=== PATIENT | female | born 1940 | race Caucasian/White ===

== ENCOUNTER 2024-09-17 05:07 | Inpatient (IN) ==
--- NOTE | 2024-09-17 05:15 | ED Physician Documentation ---
History of Present Illness Stated complaint Stated Complaint: CP, N/V, ABD PAIN Chief complaint Chief Complaint: Cardiac Additonal information Additional information: 83-year-old female with past medical significant for COPD, CHF, atrial fibrillation, chronic hypoxic respiratory failure on 4 L baseline presents to the emergency department with chief complaint abdominal pain. Reports upper abdominal pain x 3 days. Yesterday developed midsternal chest pain and tightness in the lungs. Associated with nausea vomiting and diarrhea. From chart review patient chronically anticoagulated on Xarelto. Has a past medical significant for gastric ulcer, bowel obstruction, mesenteric ischemia. [place] Coma Scale Assess Eye opening: Spontaneous Verbal response: Oriented Motor response: Obeys Commands Total score: 15 Review of Systems Status of ROS: 10 or more systems reviewed and unremarkable except as noted in history and below Cardiovascular Reports: chest pain and shortness of breath with exertion Respiratory Reports: Shortness of breath Gastrointestinal Reports: Abdominal pain, Nausea, Vomiting and Diarrhea Meds/Allgy Home Medications Ambulatory Orders Medication Instructions Recorded Confirmed aspirin 81 mg tablet,delayed 81 mg PO QDAY 03/12/24 09/17/24 release (Adult Aspirin Regimen) bisacodyl 10 mg rectal suppository 10 mg HI QDAY PRN constipation 03/12/24 09/17/24 bupropion HCl 150 mg 24 hr tablet, 150 mg PO QAM 03/12/24 09/17/24 extended release (Wellbutrin XL) cholecalciferol (vitamin D3) 50 50 mcg PO QDAY 03/12/24 09/17/24 mcg (2,000 unit) capsule (Vitamin D3) diltiazem HCl 240 mg 240 mg PO QAM 03/12/24 09/17/24 capsule,extended release 24 hr (Cardizem CD) folic acid 1 mg tablet 1 mg PO QDAY 03/12/24 09/17/24 trazodone 50 mg tablet 50 mg PO QPM 03/12/24 09/17/24 venlafaxine 150 mg tablet,extended 150 mg PO QAM 03/12/24 09/17/24 release 24 hr pantoprazole 40 mg tablet,delayed 40 mg PO QDAY 90 days #90 tabs 05/24/24 09/17/24 release pramipexole 0.5 mg tablet 0.5 mg PO QDAY 90 days #90 tabs 05/24/24 09/17/24 lidocaine 5 % topical patch 1 patch topical QDAY 30 days #30 ea 06/10/24 09/17/24 lisinopril 10 mg tablet 10 mg PO QDAY 90 days #90 tabs 07/06/24 09/17/24 metoprolol succinate 50 mg 50 mg PO QDAY 90 days #90 tabs 07/06/24 09/17/24 tablet,extended release 24 hr ondansetron 4 mg disintegrating 4 mg PO QDAY PRN nausea and 07/06/24 09/17/24 tablet vomiting 30 days #30 tabs letrozole 2.5 mg tablet 2.5 mg PO Q24H 90 days #90 tabs 08/05/24 09/17/24 lactobacillus comb no.10 20 20,000 mmu cells PO DAILY #30 caps 09/13/24 09/17/24 billion cell capsule (Probiotic) rivaroxaban 15 mg tablet (Xarelto) 15 mg PO QDAY 90 days #90 tabs 09/16/24 09/17/24 albuterol sulfate 1.25 mg/3 mL 1.25 mg inhalation DAILY PRN 09/17/24 09/17/24 solution for nebulization shortness of breath or wheezing albuterol sulfate 90 mcg/actuation 2 inh inhalation Q4-6H PRN 09/17/24 09/17/24 aerosol inhaler shortness of breath or wheezing famotidine 40 mg tablet 40 mg PO BID 09/17/24 09/17/24 fluticasone fur. 100 mcg-umeclid 1 inh inhalation QAM 09/17/24 09/17/24 62.5 mcg-vilant 25 mcg inhalat.powder (Trelegy Ellipta) ipratropium bromide 21 mcg (0.03 2 spray intranasal BID PRN nasal 09/17/24 09/17/24 %) nasal spray congestion Allergies Allergies Allergy/AdvReac Type Severity Reaction Status Date / Time codeine Allergy Severe Itching Verified 09/17/24 05:25 Latex, Natural Rubber Allergy Severe Hives Verified 09/17/24 05:25 Penicillins Allergy Severe Tachycardia Verified 09/17/24 05:25 [facility] Active Problems All Active Problems (Updated 09/17/24 @ 18:56 by Mable Ahn) Sepsis (Acute) Pneumonia (Acute) LLL pneumonia (Acute) Abdominal cramping (Acute) Diarrhea (Acute) Anemia (Acute) Acute dyspnea (Acute) Bronchitis (Acute) Acute exacerbation of chronic obstructive pulmonary disease (Acute) Nausea (Acute) Nasal congestion (Acute) GI bleed (Acute) Medical History Medical History (Updated 09/17/24 @ 18:56 by Mable Ahn) Peptic ulcer Influenza A 05/2024 Chronic respiratory failure with hypoxia on 4 liters [place] Anticoagulated History of GI bleed Anemia RBC's 3.28 (3.32) HGB 9.1 (9.4) HCT 30.7% (31.4%) MCV wnl FE 36 FE sat 13% Sciatica of left side GERD (gastroesophageal reflux disease) Restless legs syndrome (RLS) Atrial fibrillation Hypertension COPD (chronic obstructive pulmonary disease) Chronic pain Anxiety Breast cancer Insomnia Depression Social History Social History Smoking Status: Former smoker If you are a former smoker, when did you quit? (Date/Year): 1992 Number of Years Smoked: 52 How many cigarettes a day do you smoke? (20 cigarettes=1 Pk): 20 Second hand tobacco smoke exposure: No Patient requests smoking cessation consult: No Living arrangement: At home Living Condition: With family Support Person: Yes Relationship: Physical Activity: Walking Level: Independent Do you feel safe in your home environment?: Yes Suffered physical, verbal, emotional, or financial abuse?: No Are you sexually active?: No POLST Patient has POLST: No Exam Exam Vital Signs: Vital Signs x48h Temp Pulse Resp BP Pulse Ox O2 Flow Rate 09/17/24 05:07 38.1 C H 125 H 26 H 138/69 H 99 4 Constitutional normal general appearance and no apparent distress [facility] normocephalic Eyes PERRL Neck/C-Spine visual inspection normal and trachea midline Lymph no lymphadenopathy noted Chest inspection of chest normal and palpation of chest normal Respiratory breath sounds equal bilaterally, normal respiratory effort, clear to auscultation bilaterally, no wheezes and no rales Cardiovascular normal heart rate noted, no gallop, no rub and no murmur Gastrointestinal abdomen normal to inspection, abdomen soft to palpation, nontender to palpation, nontender to percussion and nondistended Genitourinary no CVA tenderness 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 II-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 intact, no movement abnormality noted, no focal motor deficit noted, no sensory deficits noted, deep tendon reflexes 2+ bilaterally and gait normal Results Vitals Vitals: Vital Signs - 24 hr 09/17/24 05:07 09/17/24 05:29 09/17/24 05:32 Temperature 38.1 C H Temperature Source Temporal Artery Scan Pulse Rate 125 H Respiratory Rate 26 H Blood Pressure 138/69 H O2 Saturation 99 Oxygen Delivery Method Nasal Cannula O2 Source Nasal cannula If not protocol: Oxygen Flow, liters/minute 4 4 Pain Intensity 8 8 09/17/24 05:39 09/17/24 06:22 09/17/24 06:25 Temperature Temperature Source Pulse Rate 105 H 101 H Respiratory Rate 22 20 Blood Pressure 152/73 H 117/62 O2 Saturation 97 99 Oxygen Delivery Method O2 Source Nasal cannula Nasal cannula If not protocol: Oxygen Flow, liters/minute 4 4 Pain Intensity 7 4 09/17/24 07:00 09/17/24 08:00 09/17/24 08:02 Temperature 37.2 C Temperature Source Temporal Artery Scan Pulse Rate 95 93 Respiratory Rate 18 18 Blood Pressure 122/57 L 110/58 L O2 Saturation 99 96 Oxygen Delivery Method O2 Source Nasal cannula Nasal cannula If not protocol: Oxygen Flow, liters/minute 4 4 Pain Intensity 8 8 Oxygen O2 Source Nasal cannula EKG (time done) 0517: EKG releavant findings:: EKG personally interpreted by author of this note. Relevant findings are: Sinus rhythm with rate 119 bpm. Normal axis. Normal HI, QRS, QTc intervals. No ST segment elevations or T wave inversions. No STEMI. Labs Labs: Laboratory Tests 09/17/24 09/17/24 05:20 06:18 WBC 17.9 H RBC 3.00 L Hgb 8.0 L Hct 26.6 L MCV 88.7 MCH 26.7 L MCHC 30.1 L RDW 13.8 Plt Count 359 MPV 9.9 Neut # (Auto) 16.0 H Lymph # (Auto) 1.1 L [place] # (Auto) 0.5 Eos # (Auto) 0.1 Baso # (Auto) 0.1 Absolute Nucleated RBC 0.00 Nucleated RBC % 0.0 VBG pH 7.476 H VBG pCO2 37.9 L VBG pO2 49.5 H VBG HCO3 28.2 H VBG Total CO2 29.3 H VBG O2 Saturation 82.0 H VBG Base Excess 4.4 H Sodium 137 Potassium 3.9 Chloride 104 Carbon Dioxide 25 Anion Gap 8.0 BUN 15 Creatinine 1.1 Estimated GFR (MDRD) 47 L Glucose 99 Lactic Acid 1.1 Calcium 8.6 Total Bilirubin 0.3 AST 14 ALT 10 Alkaline Phosphatase 98 Troponin I High Sens 8.6 Total Protein 6.7 Albumin 3.4 Globulin 3.3 Albumin/Globulin Ratio 1.0 Lipase 13 Nasal Adenovirus (PCR) NOT DETECTED Nasal B. parapertussis DNA (PCR) NOT DETECTED Nasal Coronavir 229E PCR NOT DETECTED Nasal Coronavir HKU1 PCR NOT DETECTED Nasal Coronavir NL63 PCR NOT DETECTED Nasal Coronavir OC43 PCR NOT DETECTED Nasal Enterovir/Rhinovir PCR NOT DETECTED Nasal Influenza B PCR NOT DETECTED Nasal Influenza A PCR NOT DETECTED Nasal Parainfluen 1 PCR NOT DETECTED Nasal Parainfluen 2 PCR NOT DETECTED Nasal Parainfluen 3 PCR NOT DETECTED Nasal Parainfluen 4 PCR NOT DETECTED Nasal RSV (PCR) NOT DETECTED Nasal B.pertussis DNA PCR NOT DETECTED Nasal C.pneumoniae (PCR) NOT DETECTED [place] Metapneumo PCR NOT DETECTED Nasal M.pneumoniae (PCR) NOT DETECTED Nasal SARS-CoV-2 (PCR) NOT DETECTED Ethyl Alcohol < 10.0 PD Medical Decision Making ED course ED course: 83-year-old female presents with abdominal and chest pain. She has a past medical significant for chronic hypoxic respiratory failure on 4 L baseline, COPD. Arrives to the emergency department in a sinus tachycardia with fever. Sepsis protocol initiated. Blood cultures ordered. Lactic acid is within normal limits. She does have notable leukocytosis with bandemia as well as chronic anemia unchanged from baseline. No significant hepatic or renal insufficiency or severe electrolyte abnormality noted on her comprehensive metabolic panel. Chest x-ray with findings concerning for pneumonia. Given her history of pain of abdomen and chest I have ordered for angiography of the chest as well as CT of the abdomen and pelvis. She does appear to have a unspecified penicillin allergy and I will offer initial antibiotic coverage with lucy quinolone and Flagyl. I will be signing out to the oncoming physician pending completion of imaging and reevaluation. Expected disposition will be hospitalization Sepsis secondary to pneumonia. Discharge Plan Discharge Patient Disposition: 66 [facility] DC/Xfer Condition: Serious Clinical Impression: Abdominal cramping, Pneumonia Interventions: ED Admission Assessment Last Done: 09/17/24 09:30
[2024-09-17] MEDS: ONDANSETRON 4 MG/2 ML VIAL IVP STA (05:28)
[2024-09-17] MEDS: fentaNYL 100 MCG/2 ML VIAL IVP PRN (05:29)
[2024-09-17] MEDS: SODIUM CHLORIDE 0.9% 1,000 ML IV STA (05:36)
[2024-09-17 05:47] LABS: BASOPHILS # (AUTO) 0.1 10^3/uL (0.0-0.1); BASOPHILS % (AUTO) 0.3 %; EOSINOPHILS # (AUTO) 0.1 10^3/uL (0.0-0.7); EOSINOPHILS % (AUTO) 0.4 %; HCT - HEMATOCRIT 26.6 % (37.0-47.0); LYMPHOCYTES # (AUTO) 1.1 10^3/uL (1.5-3.5); LYMPHOCYTES % (AUTO) 6.4 %; MEAN CORPUSCULAR HEMOGLOBIN 26.7 pg (27.0-31.0); MEAN CORPUSCULAR HGB CONC 30.1 g/dL (32.0-36.0); MEAN CORPUSCULAR VOLUME 88.7 fL (81.0-99.0); MEAN PLATELET VOLUME 9.9 fL (7.9-10.8); MONOCYTES # (AUTO) 0.5 10^3/uL (0.0-1.0); NEUTROPHILS % (AUTO) 89.2 %; PLT - PLATELET COUNT 359 10^3/uL (130-450); RED CELL DISTRIBUTION WIDTH 13.8 % (12.0-15.0); WHITE BLOOD COUNT 17.9 x10^3/uL (4.8-10.8)
[2024-09-17] MEDS: ACETAMINOPHEN 1,000 MG/100 ML 1,000 MG/100 ML BAG IV ONE (05:48)
[2024-09-17 06:13] LABS: ALBUMIN 3.4 g/dL (3.2-5.5); ALKALINE PHOSPHATASE 98 IU/L (42-121); ALT ALANINE AMINOTRANSFERASE 10 IU/L (10-60); AST ASPARTATE AMINOTRANSFERASE 14 IU/L (10-42); BILIRUBIN,TOTAL 0.3 mg/dL (0.2-1.0); BUN - BLOOD UREA NITROGEN 15 mg/dL (6-20); CALCIUM 8.6 mg/dL (8.5-10.3); CARBON DIOXIDE - CO2 25 mmol/L (21-32); CHLORIDE 104 mmol/L (101-111); CREATININE 1.1 mg/dL (0.6-1.3); ETOH - ETHANOL < 10.0 mg/dL; GFR - MDRD 47 (>89); GLUCOSE 99 mg/dL (74-104); LIPASE 13 U/L (11-82); POTASSIUM 3.9 mmol/L (3.5-4.5); SODIUM 137 mmol/L (135-145); TOTAL PROTEIN 6.7 g/dL (6.4-8.9)
[2024-09-17] MEDS ORDERED: iohexoL-300 100 ML VIAL ONE (06:19)
[2024-09-17] MEDS: levoFLOXacin 750 MG/150 ML 750 MG/150 ML BAG IV STA (06:23)
[2024-09-17 06:36] LABS: VBG BASE EXCESS 4.4 mmol/L (-2 - +2); VBG PCO2 37.9 mmHg (41-51); VBG PH 7.476 (7.31-7.41); VBG PO2 49.5 mmHg (25-47); VBG TOTAL CO2 29.3 mmol/L (24-29)
[2024-09-17 06:46] LABS: B. PARAPERTUSSIS- RESP PCR PAN NOT DETECTED; B. PERTUSSIS- RESP PCR PANEL NOT DETECTED; C. PNEUMONIAE- RESP PCR PANEL NOT DETECTED; CORONAVIRUS 229E-RESP PCR NOT DETECTED; CORONAVIRUS HKU1-RESP PCR NOT DETECTED; CORONAVIRUS NL63-RESP PCR NOT DETECTED; CORONAVIRUS OC43-RESP PCR NOT DETECTED; HUMAN METAPNEUMOVIRUS NOT DETECTED; INFLUENZA A- RESP PCR PANEL NOT DETECTED; INFLUENZA B - RESP PCR PANEL NOT DETECTED; M. PNEUMONIAE- RESP PCR PANEL NOT DETECTED; PARAINFLUENZA VIRUS 1 NOT DETECTED; PARAINFLUENZA VIRUS 2 NOT DETECTED; PARAINFLUENZA VIRUS 4 NOT DETECTED; RHINOVIRUS/ENTEROVIRUS NOT DETECTED; RSV- RESP PCR PANEL NOT DETECTED; SARS-CoV-2 -RESP PCR PANEL NOT DETECTED
--- NOTE | 2024-09-17 07:37 | ED Physician Documentation ---
ED Addendum Addendum Addendum: I took signout on this 83-year-old woman from Dr. Hall at 7 AM shift change. Briefly she is brought in by ambulance for chest and abdominal pain. She has a history of COPD, CHF, A-fib, chronic respiratory failure on 4 L oxygen baseline. She was found to be febrile, tachycardic, tachypneic. Diagnostics at sign out included a white count of 17.9, mild worsening of chronic anemia, and unremarkable CMP, negative viral panel. She had a chest x-ray demonstrating left basilar infiltrate and had been given levofloxacin and Flagyl noting penicillin allergy for With or without an intra-abdominal source. At signout she was pending CT of the chest and abdomen. She only had a smaller IV, so I changed the protocol of the chest CT from an angio to just the chest with, given the constellation of findings I am more concerned about infection than PE per se. Chest and abdominal CT imaging is notable for left lower lobe pneumonia. No intra-abdominal issues. She does fit sepsis criteria and spoke with Dr. Yung for admission at 9:04 AM. Discharge Plan Discharge Patient Disposition: 66 [facility] DC/Xfer Condition: Serious Clinical Impression: Abdominal cramping, Pneumonia Prescriptions: No Action Probiotic 20 billion cell capsule 20,000 mmu cells PO DAILY Qty: 30 0RF Rx Instructions: administer with a meal albuterol sulfate 1.25 mg/3 mL solution for nebulization 1.25 mg inhalation QID PRN (Reason: shortness of breath or wheezing) 90 Days Qty: 90 3RF pantoprazole 40 mg tablet,delayed release (DR/EC) 40 mg PO QDAY 90 Days Qty: 90 3RF pramipexole 0.5 mg tablet 0.5 mg PO QDAY 90 Days Qty: 90 1RF lidocaine 5 % adhesive patch,medicated 1 patch topical QDAY 30 Days Qty: 30 2RF Rx Instructions: leave on most painful area for up to 12 hrs Trelegy Ellipta 100-62.5-25 mcg blister with device 1 inh inhalation QDAY 30 Days Qty: 28 2RF letrozole 2.5 mg tablet 2.5 mg PO Q24H 90 Days Qty: 90 0RF Xarelto 15 mg tablet 15 mg PO QDAY 90 Days Qty: 90 1RF Rx Instructions: must administer with evening meal aspirin [Adult Aspirin Regimen] 81 mg tablet,delayed release (DR/EC) 81 mg PO QDAY bisacodyl 10 mg suppository 10 mg [place] QDAY PRN bupropion HCl [Wellbutrin XL] 150 mg tablet extended release 24 hr 150 mg PO QAM cholecalciferol (vitamin D3) [Vitamin D3] 50 mcg (2,000 unit) capsule 50 mcg PO QDAY diltiazem HCl [Cardizem CD] 240 mg capsule,extended release 24hr 240 mg PO QAM famotidine 20 mg tablet 20 mg PO QDAY ferrous sulfate 325 mg (65 mg iron) tablet 325 mg PO QDAY folic acid 1 mg tablet 1 mg PO QDAY trazodone 50 mg tablet 50 mg PO QDAY venlafaxine 150 mg tablet extended release 24hr 150 mg PO QAM Rx Instructions: take 2 caps ipratropium bromide 21 mcg (0.03 %) spray,non-aerosol 2 spray intranasal BID 30 Days Qty: 30 5RF metoprolol succinate 50 mg tablet extended release 24 hr 50 mg PO QDAY 90 Days Qty: 90 1RF lisinopril 10 mg tablet 10 mg PO QDAY 90 Days Qty: 90 1RF ondansetron 4 mg tablet,disintegrating 4 mg PO QDAY PRN (Reason: nausea and vomiting) 30 Days Qty: 30 3RF Print Language: Polish Stand Alone Forms: PCP List
[2024-09-17] MEDS: HYDROmorphone 1 MG/ML SYRINGE IVP STA ×2 (08:02→09:15)
[2024-09-17] MEDS: metroNIDAZOLE 500 MG/100 ML 500 MG/100 ML BAG IV ONE (08:15)
[2024-09-17] MEDS: iohexoL-300 100 ML VIAL IVP ONE (08:49)
--- NOTE | 2024-09-17 08:51 | XRAY Report ---
PROCEDURE: XR Chest 1V INDICATIONS: CP, SOA TECHNIQUE: One view of the chest was acquired. COMPARISON: Same-day CT. X-ray 09/08/2024. FINDINGS: Surgical changes and devices: None. Lungs and pleura: New left basilar opacity. Mediastinum: Mediastinal contours appear normal. Heart size is normal. Bones and chest wall: No suspicious bony lesions. Overlying soft tissues appear unremarkable. IMPRESSION: Bibasilar left opacity, concerning for infection. Findings are concordant with preliminary interpretation provided by [facility]. Reviewed by: Alfa Fernandez MD on 09/17/2024 8:50 AM PDT Approved by: Alfa Fernandez MD on 09/17/2024 8:50 AM PDT Station ID: [id number]
--- NOTE | 2024-09-17 08:55 | CT Report ---
PROCEDURE: CT Abdomen/Pelvis W INDICATIONS: Abd pain, fever, sepsis CONTRAST: omni 300, 100 TECHNIQUE: After the administration of intravenous contrast, a CT scan of the abdomen and pelvis was performed. Images were recorded and evaluated at appropriate window settings. Reformats: coronal and sagittal. F or radiation dose reduction, the following was used: automated exposure control, adjustment of mA and /or kV according to patient size. COMPARISON: 04/12/2024 FINDINGS: Image quality: Diagnostic. Lower chest: Separately dictated. Liver: No solid mass. Gallbladder: No radiopaque stones or wall thickening. Biliary tree: No intrahepatic or extrahepatic dilation, accounting for age. Spleen: No splenomegaly. Calcified granuloma. Pancreas: No pancreatic ductal dilation. Adrenals: No adrenal nodule. Kidneys and ureters: No hydronephrosis. No renal cystic lesion which requires follow up. No solid mas s. Left kidney is atrophic, cortical thinning. Stomach, bowel and peritoneum: No gastric or small bowel dilation. No abnormal wall thickening. No pa thologic free fluid. Diverticulosis without evidence of diverticulitis. Lymph nodes: No central or retroperitoneal adenopathy. Vessels: No infrarenal aortic aneurysm. Patent portal vein. PELVIS Reproductive organs: Unremarkable. Bladder: No abnormal wall thickening. Pelvic lymph nodes: No pelvic adenopathy by size criteria. Bones: No aggressive osseous abnormality. Degenerative changes of the spine. Hip arthroplasties. Other: No significant ventral or inguinal hernia. IMPRESSION: No acute abnormality. Please see same day chest CT for further discussion. Reviewed by: Alfa Fernandez MD on 09/17/2024 8:53 AM PDT Approved by: Alfa Fernandez MD on 09/17/2024 8:53 AM PDT Station ID: [id number]
--- NOTE | 2024-09-17 08:58 | CT Report ---
PROCEDURE: CT Chest W INDICATIONS: chest pain CONTRAST: omni 300, 100 TECHNIQUE: After the administration of intravenous contrast, a CT scan of the chest was performed. Images were recorded and evaluated at appropriate window settings. Reformats: axial MIP of the chest, coronal and sagittal. For radiation dose reduction, the following was used: automated exposure control, adjustme nt of mA and/or kV according to patient size. COMPARISON: 09/08/2024, 06/05/2024 FINDINGS: Image quality: Diagnostic. Chest wall and lower neck: No thyroid nodule which requires sonographic follow up. No breast mass. No axillary or supraclavicular adenopathy by size. Left-sided mastectomy. Lungs and pleura: Biapical scarring. Moderate centrilobular emphysema. Patchy left lung opacities, mi dlung zone to lower lung zone predominant. Airways are clear. 8 mm nodule in the right lower lobe (se magan 502, image 86). Mediastinum: Heart size is enlarged. No pericardial effusion. No large vessel abnormality. No mediast inal adenopathy by size criteria. Three-vessel coronary artery calcifications. Moderate hiatal herni a with a patulous esophagus. Bones: Degenerative changes, predominantly of the lumbar spine. Healed sternal fracture. Exaggerated kyphosis of the spine. Upper Abdomen: Separately dictated. IMPRESSION: Patchy left middle to lower lung zone consolidation, concerning for infection. Aspiration is less lik alea given clear airways. 8 mm nodule right lower lobe. Recommend follow-up in 6 months. Reviewed by: Alfa Fernandez MD on 09/17/2024 8:56 AM PDT Approved by: Alfa Fernandez MD on 09/17/2024 8:56 AM PDT Station ID: [id number]
[2024-09-17] MEDS ORDERED: ONDANSETRON ODT 4 MG TABLET TL PRN (09:57)
[2024-09-17 10:24] LABS: BILIRUBIN,URINE NEGATIVE (NEGATIVE); GLUCOSE, URINE (UA) NEGATIVE (NEGATIVE); KETONES,URINE (UA) NEGATIVE (NEGATIVE); LEUKOCYTE ESTERASE, URINE NEGATIVE (NEGATIVE); NITRITE,URINE NEGATIVE (NEGATIVE); OCCULT BLOOD,URINE NEGATIVE (NEGATIVE); PROTEIN,URINE NEGATIVE (NEGATIVE); UROBILINOGEN,URINE 0.2 (NORMAL) E.U./dL (NORMAL)
[2024-09-17 10:25] LABS: CLARITY,URINE CLEAR (CLEAR)
[2024-09-17] MEDS: IPRATROPIUM/ALBUTEROL 3 ML NEB INH SCH (10:45)
[2024-09-17] MEDS: levoFLOXacin 750 MG/150 ML 750 MG/150 ML BAG IV SCH (11:28)
[2024-09-17] MEDS: SODIUM CHLORIDE 0.9% 1,000 ML IV SCH (11:28)
[2024-09-17] MEDS: PANTOPRAZOLE 40 MG TABLET PO SCH (11:30)
[2024-09-17] MEDS: METOPROLOL SUCCINATE 50 MG TABLET PO SCH (11:30)
--- NOTE | 2024-09-17 12:32 | PHARMACY PROGRESS NOTE ---
Best Possible Medication History Admit Date and Time: 09/17/24 09 Home Medications Medication Instructions Recorded Confirmed Type aspirin 81 mg tablet,delayed 81 mg PO QDAY 03/12/24 09/17/24 History release (Adult Aspirin Regimen) bisacodyl 10 mg rectal suppository 10 mg [place] QDAY PRN constipation 03/12/24 09/17/24 History bupropion HCl 150 mg 24 hr tablet, 150 mg PO QAM 03/12/24 09/17/24 History extended release (Wellbutrin XL) cholecalciferol (vitamin D3) 50 50 mcg PO QDAY 03/12/24 09/17/24 History mcg (2,000 unit) capsule (Vitamin D3) diltiazem HCl 240 mg 240 mg PO QAM 03/12/24 09/17/24 History capsule,extended release 24 hr (Cardizem CD) folic acid 1 mg tablet 1 mg PO QDAY 03/12/24 09/17/24 History trazodone 50 mg tablet 50 mg PO QPM 03/12/24 09/17/24 History venlafaxine 150 mg tablet,extended 150 mg PO QAM 03/12/24 09/17/24 History release 24 hr pantoprazole 40 mg tablet,delayed 40 mg PO QDAY 90 days #90 tabs 05/24/24 09/17/24 Rx release pramipexole 0.5 mg tablet 0.5 mg PO QDAY 90 days #90 tabs 05/24/24 09/17/24 Rx lidocaine 5 % topical patch 1 patch topical QDAY 30 days #30 ea 06/10/24 09/17/24 Rx lisinopril 10 mg tablet 10 mg PO QDAY 90 days #90 tabs 07/06/24 09/17/24 Rx metoprolol succinate 50 mg 50 mg PO QDAY 90 days #90 tabs 07/06/24 09/17/24 Rx tablet,extended release 24 hr ondansetron 4 mg disintegrating 4 mg PO QDAY PRN nausea and 07/06/24 09/17/24 Rx tablet vomiting 30 days #30 tabs letrozole 2.5 mg tablet 2.5 mg PO Q24H 90 days #90 tabs 08/05/24 09/17/24 Rx lactobacillus comb no.10 20 20,000 mmu cells PO DAILY #30 caps 09/13/24 09/17/24 Rx billion cell capsule (Probiotic) rivaroxaban 15 mg tablet (Xarelto) 15 mg PO QDAY 90 days #90 tabs 09/16/24 09/17/24 Rx albuterol sulfate 1.25 mg/3 mL 1.25 mg inhalation DAILY PRN 09/17/24 09/17/24 History solution for nebulization shortness of breath or wheezing albuterol sulfate 90 mcg/actuation 2 inh inhalation Q4-6H PRN 09/17/24 09/17/24 History aerosol inhaler shortness of breath or wheezing famotidine 40 mg tablet 40 mg PO BID 09/17/24 09/17/24 History fluticasone fur. 100 mcg-umeclid 1 inh inhalation QAM 09/17/24 09/17/24 History 62.5 mcg-vilant 25 mcg inhalat.powder (Trelegy Ellipta) ipratropium bromide 21 mcg (0.03 2 spray intranasal BID PRN nasal 09/17/24 09/17/24 History %) nasal spray congestion Processed by: Pharmacy Medications reviewed in ED?: No Medication History completed: Yes Patient Interview: Completed Secondary Source(s): Insurance records [facility] Statement: Per [facility] interview with patient and review of [employer] records. As the person ultimately responsible for medication therapy, providers are able to order a medication from an existing home medication list in [facility] via the "Reconcile Routine" prior to Confirmation of that medication by production support supervisor. Such practice is discouraged except when the physician, in their clinical judgment, deems that a medical need exists for a medication without regard to previous use.
[2024-09-17] MEDS: SACCHAROMYCES BOULARDII 250 MG CAPSULE PO SCH (16:18)
[2024-09-17] MEDS: GI COCKTAIL 120 ML BOTTLE PO PRN (16:18)
[2024-09-17] MEDS: SODIUM CHLORIDE FLUSH 0.9% 10 ML SYRINGE IVP SCH (16:18)
--- NOTE | 2024-09-17 16:51 | ADVANCE CARE PLANNING NOTE ---
Advance Care Planning Planning Encounter Date: 09/17/24 Time: 16:46 Purpose: Establish Care goals and CODE STATUS Parties in Attendance: Hospitalist and patient Decisional Capacity of the Patient: She is alert and oriented to person, place, time and situation Diagnosis for Encounter (1) Chronic respiratory failure with hypoxia: Summary: Is a former smoker. Her COPD is resulted in chronic oxygen need of 3 to 4 L. While she has been hospitalized for stomach issues in the past. She has never been hospitalized for COPD. Nor has she ever been intubated. Encounter Subjective/Patient's Story: Was born and raised in [facility]. She was raised by parents who were blind. She met her in elementary school. They , and he became a successful salesman. They had 3 children. 1 son did not make it past a few weeks and of a bowel obstruction as a infant. As a salesman he was transferred to [place]. They loved it here. When they retired they moved to [place]. When her , one of her daughters moved in with her. Another daughter spends her time between houses in [facility]. She became very close to her grandson's . The is from [place]. Her grandson unfortunately but she has remained in close contact with her granddaughter in law. Having her daughter move in with her did not work out. She says it was just "not the right spirit" to be living together. She was not happy. So her granddaughter in law offered to have her move in with her here in [place]. The patient came to live with her granddaughter in law in the summer 2023. She is very, very happy. She says that her emphysema does limit her in that she has to have an oxygen concentrator when she leaves the house. She does not drive anymore and has not done so for years. But her granddaughter in law will take her shopping and she is able to go shopping as long as she has her oxygen concentrator. At home she is able to dress herself, feed herself. Does her laundry. Changed the sheets on the bed. She does not use any durable medical equipment other than the oxygen. Bqgmufjatuvtt-nb-tyi hates to cook so the patient does dinner and the grand vfgtqovr-bg-jsg does breakfast. Her emphysema is what slows her down the most. And she does have chronic aches and pains but she feels that she has an excellent quality of life. She feels that this is the happiest she is ever been since her . Her granddaughter in law is the DPROC. And the patient states that she is a DO NOT RESUSCITATE. She makes a face and wrinkles her nose and says that she does not want to have all of these tubes, broken ribs, and electrocution of her heart. "If it is her time to go, it is her time to go." She says the last few months have become more difficult with regards to dyspepsia, epigastric discomfort. She is seeing her primary care provider more frequently for it. Her current complaint that she really wishes I could fix is her epigastric pain. She states she is just absolutely miserable because of it. It is about as bad as it was when she was hospitalized in [facility] for ulcer disease and endoscopy. Objective/Medical Story: This is an elderly female who lives in her granddaughter's home. Described herself as independent. Has end-stage COPD and uses 4 L nasal cannula. Past medical history is that of peptic ulcer disease for which she was treated and hospitalized in [place] years ago. She takes various antihistamines for the dyspepsia as well as a proton pump inhibitor. Aspirin is listed on her list. She takes it very irregularly and hardly any at all. She says that she has had gradually increasing dyspepsia, belching, bloating. Her epigastrium is hurting her more more just like it did when she had ulcer disease. She has been seeing her primary care provider for this and he is attributing it to "her medication reaction". She has had diarrhea for several weeks of intermittently liquid watery stool versus dark semiformed stool. There is no blood in the stool. No fever, no chills. No one else in her house is sick with diarrhea. She came to the emergency room because her epigastrium was hurting her so badly but was found to have left lower lobe pneumonia. She is now being treated for gastritis and left lower lobe pneumonia. Goals of Care: She states that she wishes to be DO NOT RESUSCITATE. When the time comes she would like to be cremated. She does not want to live in a long-term and wishes to always stay with her granddaughter in law. Plan: 1. POLST form will be filled out today to reflect her wishes 2. Get her records from [facility] 3. I had started her on p.o. proton pump inhibitor and I will switch her to IV 4. Send stool for culture and sensitivity and see if she has viral versus bacterial versus parasitic infection 5. Treat pneumonia with Rocephin and azithromycin Code Status: Do Not Attempt Resuscitation Time spent on advance care plannin minutes
[2024-09-17] MEDS: FOLIC ACID 1 MG TABLET PO SCH (17:46)
[2024-09-17] MEDS: ONDANSETRON 4 MG/2 ML VIAL IVP PRN (17:46)
[2024-09-17] MEDS: HYDROmorphone 0.5 MG/0.5 ML SYRINGE IVP PRN (17:46)
[2024-09-17] MEDS: diltiaZEM CD 240 MG CAPSULE PO SCH (17:46)
[2024-09-17] MEDS ORDERED: buPROPion XL 150 MG TABLET PO SCH (18:00)
--- NOTE | 2024-09-17 19:30 | HISTORY & PHYSICAL EXAMINATION ---
History of Present Illness Admitted From Admitted From:: Home History Obtained From Records Reviewed: [facility] History obtained from: Patient and ED provider Exam Limitations: None History of Present Illness HPI Comment/Other: Macrina is an 83-year-old female with a history of COPD, CHF, chronic mesenteric ischemia and peptic ulcer being admitted with cough, dyspnea, nausea, fever, abdominal pain and tachycardia. She reported that her symptoms began 3 weeks ago, and she's had pneumonia before and felt like it was the same. This is her third visit to the ED in 9 days. She walked into the ED on 09/08 with dyspnea, cough and sputum. A CXR revealed no focal infiltrate and scarring/atelectasis from chronic COPD. She was diagnosed with acute on chronic COPD, bronchitis and acute dyspnea; she was prescribed levofloxacin, hydrocodone-acetaminophen, and dexamethasone. She returned via ambulance to the ED on 09/13 with abdominal pain and diarrhea, possibly due to recent levofloxacin prescription. She was diagnosed with anemia, diarrhea, and She was then discharged with a probiotic and oxycodone. On admission today, her blood pressure and respiratory rate are elevated and her WBC count is 17.9, meeting sepsis criteria. Chest x-ray showed bibasilar left opacity. She was started on IV levofloxacin, fluids. Her abdominal pain has worsened and she requested more pain medication. She is having burning pain in her epigastric area. She moved to [facility] 7 months ago from [place] after living there for over 20 years and her atloxysrpnrgq-xc-jmh cares for her. Family history: She has two daughters--one in [place] and one in [place]. Her father and two brothers of IA/heart disease. She was born and raised in [place], [place]. Her years ago and they were for over 50 years. Surgical history: Radical mastectomy of left breast; two bladder surgeries; multiple foot surgeries; palate surgery; bilateral hip replacements. She reported a history of cervical and uterine cancer. Meds/Allgy Home Medications Ambulatory Orders Medication Instructions Recorded Confirmed aspirin 81 mg tablet,delayed 81 mg PO QDAY 03/12/24 09/17/24 release (Adult Aspirin Regimen) bisacodyl 10 mg rectal suppository 10 mg AK QDAY PRN constipation 03/12/24 09/17/24 bupropion HCl 150 mg 24 hr tablet, 150 mg PO QAM 03/12/24 09/17/24 extended release (Wellbutrin XL) cholecalciferol (vitamin D3) 50 50 mcg PO QDAY 03/12/24 09/17/24 mcg (2,000 unit) capsule (Vitamin D3) diltiazem HCl 240 mg 240 mg PO QAM 03/12/24 09/17/24 capsule,extended release 24 hr (Cardizem CD) folic acid 1 mg tablet 1 mg PO QDAY 03/12/24 09/17/24 trazodone 50 mg tablet 50 mg PO QPM 03/12/24 09/17/24 venlafaxine 150 mg tablet,extended 150 mg PO QAM 03/12/24 09/17/24 release 24 hr pantoprazole 40 mg tablet,delayed 40 mg PO QDAY 90 days #90 tabs 05/24/24 09/17/24 release pramipexole 0.5 mg tablet 0.5 mg PO QDAY 90 days #90 tabs 05/24/24 09/17/24 lidocaine 5 % topical patch 1 patch topical QDAY 30 days #30 ea 06/10/24 09/17/24 lisinopril 10 mg tablet 10 mg PO QDAY 90 days #90 tabs 07/06/24 09/17/24 metoprolol succinate 50 mg 50 mg PO QDAY 90 days #90 tabs 07/06/24 09/17/24 tablet,extended release 24 hr ondansetron 4 mg disintegrating 4 mg PO QDAY PRN nausea and 07/06/24 09/17/24 tablet vomiting 30 days #30 tabs letrozole 2.5 mg tablet 2.5 mg PO Q24H 90 days #90 tabs 08/05/24 09/17/24 lactobacillus comb no.10 20 20,000 mmu cells PO DAILY #30 caps 09/13/24 09/17/24 billion cell capsule (Probiotic) rivaroxaban 15 mg tablet (Xarelto) 15 mg PO QDAY 90 days #90 tabs 09/16/24 09/17/24 albuterol sulfate 1.25 mg/3 mL 1.25 mg inhalation DAILY PRN 09/17/24 09/17/24 solution for nebulization shortness of breath or wheezing albuterol sulfate 90 mcg/actuation 2 inh inhalation Q4-6H PRN 09/17/24 09/17/24 aerosol inhaler shortness of breath or wheezing famotidine 40 mg tablet 40 mg PO BID 09/17/24 09/17/24 fluticasone fur. 100 mcg-umeclid 1 inh inhalation QAM 09/17/24 09/17/24 62.5 mcg-vilant 25 mcg inhalat.powder (Trelegy Ellipta) ipratropium bromide 21 mcg (0.03 2 spray intranasal BID PRN nasal 09/17/24 09/17/24 %) nasal spray congestion Allergies Allergies Allergy/AdvReac Type Severity Reaction Status Date / Time codeine Allergy Severe Itching Verified 09/17/24 05:25 Latex, Natural Rubber Allergy Severe Hives Verified 09/17/24 05:25 Penicillins Allergy Severe Tachycardia Verified 09/17/24 05: PFSH Active Problems All Active Problems (Updated 09/17/24 @ 19:31 by Mable Ahn) Sepsis (Acute) Pneumonia (Acute) LLL pneumonia (Acute) Abdominal cramping (Acute) Diarrhea (Acute) Anemia (Acute) Acute dyspnea (Acute) Bronchitis (Acute) Acute exacerbation of chronic obstructive pulmonary disease (Acute) Nausea (Acute) Nasal congestion (Acute) GI bleed (Acute) Medical History Medical History (Updated 09/17/24 @ 19:31 by Mable Ahn) Peptic ulcer Influenza A 05/2024 Chronic respiratory failure with hypoxia on 4 liters NC Anticoagulated History of GI bleed Anemia RBC's 3.28 (3.32) HGB 9.1 (9.4) HCT 30.7% (31.4%) MCV wnl FE 36 FE sat 13% Sciatica of left side GERD (gastroesophageal reflux disease) Restless legs syndrome (RLS) Atrial fibrillation Hypertension COPD (chronic obstructive pulmonary disease) Chronic pain Anxiety Breast cancer Insomnia Depression Social History Social History Smoking Status: Former smoker If you are a former smoker, when did you quit? (Date/Year): 1992 Number of Years Smoked: 52 How many cigarettes a day do you smoke? (20 cigarettes=1 Pk): 20 Second hand tobacco smoke exposure: No Patient requests smoking cessation consult: No Living arrangement: At home Living Condition: With family Support Person: Yes Relationship: Physical Activity: Walking Level: Independent Do you feel safe in your home environment?: Yes Suffered physical, verbal, emotional, or financial abuse?: No Are you sexually active?: No POLST Patient has POLST: No Review of Systems Constitutional Reports: Fatigue, Fever and Chills Eyes Reports: Other (Cataract surgery) Ears, nose, mouth, and throat Reports: Hearing loss, Hearing aids and Other (History of palate surgery) Cardiovascular Reports: Irregular heart rate (atrial fibrillation) and shortness of breath with exertion; Denies: chest pain Respiratory Reports: Shortness of breath, Cough, Sputum production, SOB with exertion and Chest congestion Gastrointestinal Reports: Abdominal pain (epigastric), Nausea, Vomiting and Poor appetite Genitourinary Reports: Other (history of bladder surgery x2) Integumentary/Breast Reports: Other (history of breast CA) Neurological Reports: Numbness in extremities (bilateral foot numbness and multiple surgeries); Denies: Headache or Dizziness Psychiatric Reports: Depression Endocrine Reports: Fatigue Hematologic/Lymphatic Reports: Anemia (AOCD) Exam Exam Vital Signs: Vital Signs x48h Temp Pulse Resp BP Pulse Ox O2 Flow Rate 09/19/24 14:00 37.5 C 67 14 114/52 L 98 4 Constitutional Ill-appearing, pallor. Alert and talkative. HENMT normocephalic, head/scalp atraumatic and hearing grossly normal bilaterally (hearing aids at home) Eyes PERRL and no scleral icterus Neck/C-Spine visual inspection normal, trachea midline and cervical spine nontender Chest inspection of chest abnormal left mastectomy scar Respiratory Decreased breath sounds bilaterally. Crackles LLL. Cough with sputum. Cardiovascular Atrial fibrillation Gastrointestinal abdomen soft to palpation Sepsis Event Note (H) Evaluation Current Stage of Sepsis: Sepsis Possible source of Sepsis: positive Pulmonary Sepsis Criteria Sepsis Criteria: Suspected or Documented, Recorded Heart Rate greater than 90 bpm, Recorded Respiratory Rate greater than 20, Respiratory: Increasing oxygen requirements and WBC count greater than 12,000 or less than 4000 Conclusion/Plan Problem List (1) Sepsis: Plan: Patient came into the ED today with dyspnea, fever, abdominal pain, and cough. Her WBC count is 17.9 and she has tachypneia, tachycardia. Source is pneumonia. -I've chosen IV levofloxacin since she is allergic to PCN and has chronic COPD -I will give 1 liter of maintenance fluids -Blood cultures pending and will be reviewed once resulted. I will adjust abx once they are back. Qualifiers: Sepsis acute organ dysfunction status: unspecified Sepsis type: sepsis due to unspecified organism Qualified Code(s): A41.9 - Sepsis, unspecified organism (2) LLL pneumonia: Plan: The patient presented with a cough with sputum production, dyspnea, fever, tachycardia and tachypneia. CXR showed bibasilar left opacity. -Continue IV levofloxacin and fluids as above -Blood cultures pending -Patient is producing sputum and I will order C&S. Qualifiers: Pneumonia type: due to unspecified organism Qualified Code(s): J18.9 - Pneumonia, unspecified organism (3) Abdominal cramping: Plan: Patient has abdominal pain, nausea, vomiting, and diarrhea since 09/13. She has a history of peptic ulcer and GI bleed. Differential diagnoses includes: acute gastroenteritis due to viral infection, C. difficile infection, H. pylori infection, IBS. Patient was given GI cocktail, fluids and pain medications. She still has epigastric pain that is severe and it is helped by GI cocktail. So I am also considering gastritis. -Patient is taking Xarelto for chronic atrial fibrillation; held at this time. -I will order stool culture -I will order O&P -I will order IV protonix -I have ordered GI cocktail -I will get records from [facility] in [place] to see what that EGD showed. I have also told her to stop ANY NSAID. She cannot take them. (4) COPD (chronic obstructive pulmonary disease): Plan: Patient has dypsnea, fever, abdominal pain, and cough. CXR on 09/08 revealed scarring/atelectasis due to chronic interstitial lung disease. Patient was given nebulizer treatment on admission and is on 4L oxygen at home. Patient uses ipratroprium bromide inhaler at home. -Continue nebulizer treatment as indicated. -Avoid ordering steroids due to epigastric pain and worsening of gastritis. Qualifiers: COPD type: COPD with acute exacerbation Qualified Code(s): J44.1 - Chronic obstructive pulmonary disease with (acute) exacerbation (5) Chronic respiratory failure with hypoxia: Plan: The patient has chronic COPD that is managed with at-home oxygen at 4L. She reported that she's had shortness of breath along with abdominal pain for 10 days. Due to her chronic COPD, the patient's venous blood gases are abnormal; her pCO2 is lower than normal and her pO2 is higher than normal. -Continue to monitor O2 saturation and adjust oxygen therapy as needed. -Continue nebulizer treatment and avoid steroids, as above. (6) Atrial fibrillation: Plan: The patient presented to the ED with sinus tachycardia at 125bpm and dyspnea. It appears she has a history of paroxysmal atrial fibrillation. Currently in NSR. An EKG in the ED showed sinus tachycardia, normal axis, normal P-R, QRS, and QTc. STEMI was ruled out. She is taking diltiazem, metoprolol succinate. -Continue oral metoprolol succinate, diltiazem. Rrivaroxaban currently held due to anemia, gastritis, history of PUD. -Monitor for acute changes--tachycardia, increased dyspnea, chest pain Qualifiers: Atrial fibrillation type: longstanding persistent Qualified Code(s): I 48.11 - Longstanding persistent atrial fibrillation (7) Anticoagulated: Plan: Patient has been on rivaroxaban at home and was given IV enoxaparin sodium on admission. -Continue anticoagulation -Order coagulation profile and monitor. -Due to her history of GI bleed, any acute changes in symptoms such as bloody stools, hematemesis, and changes in labs such as decreased hemoglobin or hematocrit, would require adjustment in anticoagulation therapy. (8) History of GI bleed: Plan: Any acute changes in the patient's symptoms or labs that would indicate possible GI bleed would warrant further evaluation. Her current hemoglobin is 8.0 and hematocrit is 26.8%. The patient was told to stop NSAID use, as above. -Order transfusion if patient's hemoglobin drops below 8.0. -Order abdominal CT if needed -Consult with general surgery for possible upper endoscopy if there is a strong suspicion and evidence of GI bleed--decreasing H&H, abnormal coagulation profile, and symptoms. (9) Peptic ulcer: Plan: The patient reported that she had a colonoscopy and EGD around 5 years ago and she was diagnosed with peptic ulcer, but does not remember etiology or specific treatments. -[facility] -Patient is on IV Protonix to control acid production and provide relief of epigastric pain. 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 The patient has been on anticoagulation therapy to prevent thrombosis. -As above, patient is on IV enoxaparin sodium. -Continue monitoring coagulation profile and clinical progression/signs -Consult with general surgery if needed Lab Results Lab results reviewed: Yes 09/19/24 05:22 09/19/24 05:22 Diagnostic Imaging Results Diagnostic Imaging Results: positive Final report reviewed EKG Results EKG Interpreted Independently: No EKG Comparison: No prior EKG
[2024-09-17] MEDS: traZODone 50 MG TABLET PO SCH (21:57)
[2024-09-17] MEDS: oxyCODONE 5 MG TABLET PO PRN (21:57)
[2024-09-18 06:16] LABS: BASOPHILS % (AUTO) 0.2 %; EOSINOPHILS # (AUTO) 0.1 10^3/uL (0.0-0.7); EOSINOPHILS % (AUTO) 0.6 %; HCT - HEMATOCRIT 26.8 % (37.0-47.0); LYMPHOCYTES # (AUTO) 1.5 10^3/uL (1.5-3.5); LYMPHOCYTES % (AUTO) 8.5 %; MEAN CORPUSCULAR HEMOGLOBIN 26.8 pg (27.0-31.0); MEAN CORPUSCULAR HGB CONC 29.9 g/dL (32.0-36.0); MEAN CORPUSCULAR VOLUME 89.6 fL (81.0-99.0); MEAN PLATELET VOLUME 9.8 fL (7.9-10.8); MONOCYTES # (AUTO) 0.8 10^3/uL (0.0-1.0); MONOCYTES % (AUTO) 4.4 %; NEUTROPHILS # (AUTO) 15.1 10^3/uL (1.5-6.6); NEUTROPHILS % (AUTO) 85.8 %; PLT - PLATELET COUNT 315 10^3/uL (130-450); RED BLOOD COUNT 2.99 10^6/uL (4.20-5.40); WHITE BLOOD COUNT 17.6 x10^3/uL (4.8-10.8)
[2024-09-18 06:33] LABS: CALCIUM 8.8 mg/dL (8.5-10.3); CREATININE 1.1 mg/dL (0.6-1.3); POTASSIUM 3.9 mmol/L (3.5-4.5)
[2024-09-18] MEDS: PRAMIPEXOLE 0.25 MG TABLET PO SCH (08:43)
[2024-09-18] MEDS: VENLAFAXINE ER 75 MG CAPSULE PO SCH (08:43)
[2024-09-18] MEDS: ENOXAPARIN 40 MG/0.4 ML SYRINGE SUBQ SCH (08:44)
[2024-09-18] MEDS: LETROZOLE 2.5 MG PO SCH (08:46)
[2024-09-18] MEDS ORDERED: PRAMIPEXOLE 0.25 MG TABLET PO SCH (09:00)
[2024-09-18] MEDS: ACETAMINOPHEN 325 MG TABLET PO PRN (11:25)
[2024-09-18] MEDS: SODIUM CHLORIDE FLUSH 0.9% 10 ML SYRINGE IVP PRN (12:18)
[2024-09-18] MEDS: polyethylene glycoL 3350 17 GM PACKET PO SCH (13:11)
--- NOTE | 2024-09-18 15:02 | PROVIDER PROGRESS NOTE ---
Subjective Prog Note Date Prog Note Date: 09/18/24 Prog Note Time: 14:16 Subjective Pt reports feeling: Improved Subjective: Macrina is an 83-year-old female with a history of chronic COPD, breast cancer, and peptic ulcer who presented to the ED on 09/17 with abdominal pain and shortness of breath. Today she reports that she is feeling better. Her dyspnea has improved and she has an appetite, as her abdominal pain has improved as well. She reports that she only takes NSAID drugs once every "1 to 2 months". Current Medications Current Medications Current Medications: Current Medications Generic Name Dose Route Start Last Admin Trade Name Freq PRN Reason Stop Dose Admin Acetaminophen 650 mg 09/17/24 09:57 09/18/24 11:25 Acetaminophen 325 Mg Tablet PO 650 mg Q4HR PRN Administration Pain 1 to 4, or Fever Diltiazem HCl 240 mg 09/17/24 18:00 09/18/24 08:42 Diltiazem Cd 240 Mg Capsule PO 240 mg DAILY ROSE Administration Docusate Sodium 250 - 500 mg 09/19/24 09:00 Docusate Sodium 250 Mg Capsule PO DAILY ROSE Enoxaparin Sodium 40 mg 09/18/24 09:00 09/18/24 08:44 Enoxaparin 40 Mg/0.4 Ml Syringe SUBQ 40 mg DAILY ROSE Administration Fentanyl 25 mcg 09/17/24 05:16 09/17/24 05:29 Fentanyl 100 Mcg/2 Ml Vial IVP 25 mcg PRN PRN Administration PAIN 5-7 Folic Acid 1 mg 09/17/24 18:00 09/18/24 08:43 Folic Acid 1 Mg Tablet PO 1 mg DAILY ROSE Administration Hydromorphone HCl 0.5 mg 09/17/24 17:00 09/18/24 12:17 Hydromorphone 0.5 Mg/0.5 Ml Syringe IVP 0.5 mg Q2H PRN Administration Severe Pain (Level 7-10) Levofloxacin 750 mg in 150 mls @ 100 mls/hr 09/17/24 10:00 09/18/24 11:26 Levaquin 750 Mg/150 Ml IV 09/21/24 11:29 Infused Q24H ROSE Infusion Metoprolol Succinate 50 mg 09/17/24 10:00 09/18/24 08:42 Metoprolol Succinate 50 Mg Tablet PO 50 mg DAILY ROSE Administration Multi-Ingredient Mouthwash/Gargle 30 ml 09/17/24 09:57 09/18/24 12:17 Gi Cocktail 120 Ml Bottle PO 30 ml Q4H PRN Administration Abdominal Pain Ondansetron HCl 4 mg 09/17/24 09:57 Ondansetron Odt 4 Mg Tablet TL Q6HR PRN Nausea / Vomiting Ondansetron HCl 4 mg 09/17/24 09:57 09/17/24 17:46 Ondansetron 4 Mg/2 Ml Vial IVP 4 mg Q6HR PRN Administration Nausea / Vomiting Oxycodone HCl 5 mg 09/17/24 09:57 09/17/24 21:57 Oxycodone 5 Mg Tablet PO 5 mg Q4HR PRN Administration Pain 5 to 7 Pantoprazole Sodium 40 mg 09/17/24 10:00 09/18/24 06:09 Pantoprazole 40 Mg Tablet PO 40 mg QDAC ROSE Administration Letrozole 2.5mg Po 1 each 09/18/24 09:00 09/18/24 08:46 Daily PO Not Given DAILY ROSE Polyethylene Glycol 17 gm 09/18/24 13:00 09/18/24 13:11 Polyethylene Glycol 3350 17 Gm Packet PO 17 gm DAILY ROSE Administration Pramipexole Dihydrochloride 0.5 mg 09/18/24 09:00 09/18/24 08:43 Pramipexole 0.25 Mg Tablet PO 0.5 mg DAILY ROSE Administration Saccharomyces Boulardii 250 mg 09/17/24 17:00 09/18/24 08:43 Saccharomyces Boulardii 250 Mg Capsule PO 250 mg BIDWM ROSE Administration Senna 8.6 - 17.2 mg 09/19/24 09:00 Senna 8.6 Mg Tablet PO DAILY ROSE Sodium Chloride 10 ml 09/17/24 09:57 09/18/24 12:18 Sodium Chloride Flush 0.9% 10 Ml Syringe IVP 10 ml PRN PRN Administration NEEDED PER PROVIDER ORDERS Sodium Chloride 10 ml 09/17/24 17:00 09/18/24 08:44 Sodium Chloride Flush 0.9% 10 Ml Syringe IVP 10 ml 0100,0900,1700 ROSE Administration Trazodone HCl 50 mg 09/17/24 21:00 09/17/24 21:57 Trazodone 50 Mg Tablet PO 50 mg QPM ROSE Administration Venlafaxine HCl 150 mg 09/18/24 09:00 09/18/24 08:43 Venlafaxine Er 75 Mg Capsule PO 150 mg DAILY ROSE Administration Objective Vital Signs/Intake & Output Vital Signs: Vital Signs x48h Temp Pulse Resp BP Pulse Ox O2 Flow Rate 09/18/24 10:48 4 09/18/24 08:26 38.2 C H 99 28 H 149/64 H 97 4 Intake & Output: Intake & Output 09/15/24 09/16/24 09/17/24 09/18/24 23:59 23:59 23:59 23:59 Intake Total 2920 / 2920 650 / 650 Output Total 300 / 300 700 / 700 Balance 2620 / 2620 -50 / -50 Weight (kg) 55 kg Lab Results 09/18/24 06:10 09/18/24 06:10 Other Labs: Lab Results x24hrs 09/18/24 Range/Units 06:10 WBC 17.6 H (4.8-10.8) x10^3/uL RBC 2.99 L (4.20-5.40) 10^6/uL Hgb 8.0 L (12.0-16.0) g/dL Hct 26.8 L (37.0-47.0) % MCV 89.6 (81.0-99.0) fL MCH 26.8 L (27.0-31.0) pg MCHC 29.9 L (32.0-36.0) g/dL RDW 14.0 (12.0-15.0) % Plt Count 315 (130-450) 10^3/uL MPV 9.8 (7.9-10.8) fL Neut # (Auto) 15.1 H (1.5-6.6) 10^3/uL Lymph # (Auto) 1.5 (1.5-3.5) 10^3/uL [place] # (Auto) 0.8 (0.0-1.0) 10^3/uL Eos # (Auto) 0.1 (0.0-0.7) 10^3/uL Baso # (Auto) 0.0 (0.0-0.1) 10^3/uL Absolute Nucleated RBC 0.00 x10^3/uL Nucleated RBC % 0.0 /100WBC Sodium 135 (135-145) mmol/L Potassium 3.9 (3.5-4.5) mmol/L Chloride 104 (101-111) mmol/L Carbon Dioxide 26 (21-32) mmol/L Anion Gap 5.0 L (6-13) BUN 15 (6-20) mg/dL Creatinine 1.1 (0.6-1.3) mg/dL Estimated GFR (MDRD) 47 L (>89) Glucose 89 (74-104) mg/dL Calcium 8.8 (8.5-10.3) mg/dL Sepsis Event Note (H) Evaluation Current Stage of Sepsis: Sepsis Possible source of Sepsis: positive Pulmonary Sepsis Criteria Sepsis Criteria: Suspected or Documented, Recorded Heart Rate greater than 90 bpm, Recorded Respiratory Rate greater than 20, Respiratory: Increasing oxygen requirements and WBC count greater than 12,000 or less than 4000 Assessment/Plan Problem List (1) Sepsis: Impression: The patient still has a fever and tachypnea. Her WBC count is stable. -Continue IV levofloxacin and fluids. -Blood cultures are pending, no growth to date. Adjust antibiotic therapy as needed. -Collect a sputum culture, if possible. Qualifiers: Sepsis acute organ dysfunction status: unspecified Sepsis type: sepsis due to unspecified organism Qualified Code(s): A41.9 - Sepsis, unspecified organism (2) LLL pneumonia: Impression: The patient presented with a cough with sputum production, dyspnea, fever, tachycardia and tachypneia. CXR showed bibasilar left opacity. -Continue IV levofloxacin and fluids as above. -Blood cultures are no growth to date. -Patient is producing sputum--order C&S. Qualifiers: Pneumonia type: due to unspecified organism Qualified Code(s): J18.9 - Pneumonia, unspecified organism (3) Abdominal cramping: Impression: Patient has abdominal pain, nausea, vomiting, and diarrhea since 09/13. She has a history of peptic ulcer and GI bleed. Differential diagnoses includes: acute gastroenteritis due to viral infection, C. difficile infection, H. pylori infection, gastritis, IBS. Patient was given GI cocktail, fluids and pain medications. The patient's epigastric pain has improved since yesterday. -Patient is taking Xarelto for chronic atrial fibrillation; held at this time as DOAC may be contributing to gastritis picture. Hemoglobin is low at 8. Iron studies have been ordered. Transfuse for Hb < 7. -Stool culture and O&P have been ordered. -Patient is on IV Protonix. Continued. -GI cocktail has been ordered. -Records have been requested from [facility] in [place] to see results of patient's EGD. The patient has been advised to stop NSAIDs. (4) COPD (chronic obstructive pulmonary disease): Impression: On admission, patient had dypsnea, fever, abdominal pain, and cough. Chest x-ray on 09/08 revealed scarring/atelectasis due to chronic interstitial lung disease. Patient was given nebulizer treatment on admission and is on 4L oxygen at home. Patient uses ipratroprium bromide inhaler at home. Today, the patient's dyspnea and cough have improved. -Continue nebulizer treatment if indicated. Qualifiers: COPD type: COPD with acute exacerbation Qualified Code(s): J44.1 - Chronic obstructive pulmonary disease with (acute) exacerbation (5) Chronic respiratory failure with hypoxia: Impression: The patient has chronic COPD that is managed with at-home oxygen at 4L. She reported that she's had shortness of breath along with abdominal pain for 10 days. Due to her chronic COPD, the patient's venous blood gases are abnormal; her pCO2 is lower than normal and her pO2 is higher than normal. -Continue to monitor O2 saturation and adjust oxygen therapy as needed. -Continue nebulizer treatment and avoid steroids, as above. (6) Atrial fibrillation: Impression: The patient presented to the ED with sinus tachycardia at 125bpm and dyspnea. It appears she has a history of paroxysmal atrial fibrillation. Currently in NSR. -An EKG in the ED showed sinus tachycardia, normal axis, normal P-R, QRS, and QTc. STEMI was ruled out. She is taking diltiazem, metoprolol succinate. -Continue oral metoprolol succinate, diltiazem. Rivaroxaban currently held due to anemia, gastritis, history of PUD. Will continue discussion on usage of DOAC. -Monitor for acute changes--tachycardia, increased dyspnea, chest pain. Qualifiers: Atrial fibrillation type: longstanding persistent Qualified Code(s): I 48.11 - Longstanding persistent atrial fibrillation (7) History of GI bleed: Impression: Any acute changes in the patient's symptoms or labs that would indicate possible GI bleed would warrant further evaluation. Her current hemoglobin is 8.0 and hematocrit is 26.8%. The patient was told to stop NSAID use, as above. -Order iron study to specify anemia. -Consult with general surgery for possible upper endoscopy if there is a strong suspicion and evidence of GI bleed--decreasing H&H, abnormal coagulation profile, and symptoms, etc. Currently Hb is stable. Awaiting records of recent EGD/colonoscopy. (8) Peptic ulcer: Impression: The patient reported that she had a colonoscopy and EGD around 5 years ago and she was diagnosed with peptic ulcer, but does not remember etiology or specific treatments. -Requested medical records from [facility] in [place] -Patient is on IV Protonix to control acid production and provide relief of epigastric pain. 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 -Consult with general surgery if needed, or if concern for acute ischemia. May require further evaluation with CTA of abdomen if pain progresses.
[2024-09-18 15:58] LABS: % IRON SATURATION 5 % (20-50); IRON 14 ug/dL (50-212); TOTAL IRON BINDING CAPACITY 273 ug/dL (250-450); TRANSFERRIN 195 mg/dL (203-362)
[2024-09-19] MEDS: IPRATROPIUM/ALBUTEROL 3 ML NEB INH PRN (02:37)
[2024-09-19] MEDS: guaiFENesin/DEXTROMETHORPHAN 10 ML UDC PO PRN (03:46)
[2024-09-19 05:52] LABS: BASOPHILS % (AUTO) 0.2 %; EOSINOPHILS # (AUTO) 0.1 10^3/uL (0.0-0.7); EOSINOPHILS % (AUTO) 0.3 %; HGB - HEMOGLOBIN 7.8 g/dL (12.0-16.0); LYMPHOCYTES # (AUTO) 1.2 10^3/uL (1.5-3.5); LYMPHOCYTES % (AUTO) 8.4 %; MEAN CORPUSCULAR HEMOGLOBIN 26.6 pg (27.0-31.0); MEAN CORPUSCULAR VOLUME 88.7 fL (81.0-99.0); MEAN PLATELET VOLUME 10.1 fL (7.9-10.8); MONOCYTES # (AUTO) 0.8 10^3/uL (0.0-1.0); MONOCYTES % (AUTO) 5.7 %; NEUTROPHILS # (AUTO) 12.6 10^3/uL (1.5-6.6); NEUTROPHILS % (AUTO) 84.9 %; PLT - PLATELET COUNT 324 10^3/uL (130-450); RED BLOOD COUNT 2.93 10^6/uL (4.20-5.40); WHITE BLOOD COUNT 14.9 x10^3/uL (4.8-10.8)
[2024-09-19 06:10] LABS: CALCIUM 8.7 mg/dL (8.5-10.3); MAGNESIUM 1.9 mg/dL (1.7-2.3); POTASSIUM 3.6 mmol/L (3.5-4.5)
[2024-09-19] MEDS: SENNA 8.6 MG TABLET PO SCH (08:12)
[2024-09-19] MEDS: DOCUSATE SODIUM 250 MG CAPSULE PO SCH (08:12)
--- NOTE | 2024-09-19 17:50 | PROVIDER PROGRESS NOTE ---
Subjective Prog Note Date Prog Note Date: 09/19/24 Prog Note Time: 17:37 Subjective Subjective: The patient says she is improved with regards to cough or shortness of breath. She denies any chest pain. Has minimal appetite. But also continues to complain of epigastric abdominal pain. I did asked for records from [facility]. Today's talk says that no records have come. Patient denies melena. Dark stool this admission. But she has had dark stool off and on in the outpatient setting. She says she has not really paid attention of its melena or bloody. Abdominal pain continues in spite of proton pump inhibitors and GI cocktail. The GI cocktail does help but has not take away the pain completely or for too long Current Medications Current Medications Current Medications: Current Medications Generic Name Dose Route Start Last Admin Trade Name Freq PRN Reason Stop Dose Admin Acetaminophen 650 mg 09/17/24 09:57 09/18/24 11:25 Acetaminophen 325 Mg Tablet PO 650 mg Q4HR PRN Administration Pain 1 to 4, or Fever Albuterol/Ipratropium 3 ml 09/18/24 16:14 09/19/24 02:37 Ipratropium/Albuterol 3 Ml Neb INH 3 ml Q4HR PRN Administration Wheezing Diltiazem HCl 240 mg 09/17/24 18:00 09/19/24 08:04 Diltiazem Cd 240 Mg Capsule PO 240 mg DAILY ROSE Administration Docusate Sodium 250 - 500 mg 09/19/24 09:00 09/19/24 08:12 Docusate Sodium 250 Mg Capsule PO 500 mg DAILY ROSE Administration Enoxaparin Sodium 40 mg 09/18/24 09:00 09/19/24 08:06 Enoxaparin 40 Mg/0.4 Ml Syringe SUBQ 40 mg DAILY ROSE Administration Fentanyl 25 mcg 09/17/24 05:16 09/17/24 05:29 Fentanyl 100 Mcg/2 Ml Vial IVP 25 mcg PRN PRN Administration PAIN 5-7 Folic Acid 1 mg 09/17/24 18:00 09/19/24 08:04 Folic Acid 1 Mg Tablet PO 1 mg DAILY ROSE Administration Guaifenesin 10 ml 09/19/24 02:46 09/19/24 03:46 Guaifenesin/Dextromethorphan 10 Ml Udc PO 10 ml Q6HR PRN Administration Cough Hydromorphone HCl 0.5 mg 09/17/24 17:00 09/19/24 13:29 Hydromorphone 0.5 Mg/0.5 Ml Syringe IVP 0.5 mg Q2H PRN Administration Severe Pain (Level 7-10) Levofloxacin 750 mg in 150 mls @ 100 mls/hr 09/17/24 10:00 09/19/24 15:35 Levaquin 750 Mg/150 Ml IV 09/21/24 11:29 Infused Q24H ROSE Infusion Metoprolol Succinate 50 mg 09/17/24 10:00 09/19/24 08:04 Metoprolol Succinate 50 Mg Tablet PO 50 mg DAILY ROSE Administration Multi-Ingredient Mouthwash/Gargle 30 ml 09/17/24 09:57 09/18/24 17:36 Gi Cocktail 120 Ml Bottle PO 30 ml Q4H PRN Administration Abdominal Pain Ondansetron HCl 4 mg 09/17/24 09:57 Ondansetron Odt 4 Mg Tablet TL Q6HR PRN Nausea / Vomiting Oxycodone HCl 5 mg 09/17/24 09:57 09/19/24 02:34 Oxycodone 5 Mg Tablet PO 5 mg Q4HR PRN Administration Pain 5 to 7 Pantoprazole Sodium 40 mg 09/17/24 10:00 09/19/24 05:22 Pantoprazole 40 Mg Tablet PO 40 mg QDAC ROSE Administration Letrozole 2.5mg Po 1 each 09/18/24 09:00 09/19/24 09:34 Daily PO Not Given DAILY ROSE Polyethylene Glycol 17 gm 09/18/24 13:00 09/19/24 08:03 Polyethylene Glycol 3350 17 Gm Packet PO 17 gm DAILY ROSE Administration Pramipexole Dihydrochloride 0.5 mg 09/18/24 09:00 09/19/24 08:05 Pramipexole 0.25 Mg Tablet PO 0.5 mg DAILY ROSE Administration Saccharomyces Boulardii 250 mg 09/17/24 17:00 09/19/24 17:22 Saccharomyces Boulardii 250 Mg Capsule PO 250 mg BIDWM ROSE Administration Senna 8.6 - 17.2 mg 09/19/24 09:00 09/19/24 08:12 Senna 8.6 Mg Tablet PO 17.2 mg DAILY ROSE Administration Sodium Chloride 10 ml 09/17/24 09:57 09/18/24 12:18 Sodium Chloride Flush 0.9% 10 Ml Syringe IVP 10 ml PRN PRN Administration NEEDED PER PROVIDER ORDERS Sodium Chloride 10 ml 09/17/24 17:00 09/19/24 17:22 Sodium Chloride Flush 0.9% 10 Ml Syringe IVP 10 ml 0100,0900,1700 ROSE Administration Trazodone HCl 50 mg 09/17/24 21:00 09/18/24 21:49 Trazodone 50 Mg Tablet PO 50 mg QPM ROSE Administration Venlafaxine HCl 150 mg 09/18/24 09:00 09/19/24 08:05 Venlafaxine Er 75 Mg Capsule PO 150 mg DAILY ROSE Administration Objective Vital Signs/Intake & Output Reviewed Vital Signs: Yes Vital Signs: Vital Signs x48h Temp Pulse Resp BP Pulse Ox O2 Flow Rate 09/19/24 14:00 37.5 C 67 14 114/52 L 98 4 Intake & Output: Intake & Output 09/16/24 09/17/24 09/18/24 09/19/24 23:59 23:59 23:59 23:59 Intake Total 2920 / 2920 990 / 990 610 / 610 Output Total 300 / 300 900 / 900 375 / 375 Balance 2620 / 2620 90 / 90 235 / 235 Weight (kg) 55 kg Objective General Appearance: positive No acute distress, Alert and Other (Thin, talkative elderly female in no acute distress. No respiratory distress) Eyes Bilateral: positive PERRL ENT: positive No signs of dehydration Neck: positive No JVD; negative Stiff neck Respiratory: positive Chest non-tender, No respiratory distress and Breath sounds nml; negative Wheezes, Rales or Rhonchi Cardiovascular: positive Regular rate & rhythm, Systolic murmur and Other (She had tachycardia on admission and has not had any tachycardia since that day. Heart rate is been between 67 today and 99. Staying stable in the 70s for the most part) Abdomen: positive No organomegaly, Nml bowel sounds and Tenderness (Mild in the epigastrium. No radiation. No rebound or guarding) Skin: positive Warm and Dry Extremities: positive Non-tender, Full ROM and Nml appearance Neurologic/Psychiatric: positive Oriented x3, CN's nml (2-12) and Motor nml Lab Results 09/19/24 05:22 05/04/25 05:22 Other Labs: Lab Results x24hrs 09/19/24 09/18/24 Range/Units 05:22 18:15 WBC 14.9 H (4.8-10.8) x10^3/uL RBC 2.93 L (4.20-5.40) 10^6/uL Hgb 7.8 L (12.0-16.0) g/dL Hct 26.0 L (37.0-47.0) % MCV 88.7 (81.0-99.0) fL MCH 26.6 L (27.0-31.0) pg MCHC 30.0 L (32.0-36.0) g/dL RDW 14.0 (12.0-15.0) % Plt Count 324 (130-450) 10^3/uL MPV 10.1 (7.9-10.8) fL Neut # (Auto) 12.6 H (1.5-6.6) 10^3/uL Lymph # (Auto) 1.2 L (1.5-3.5) 10^3/uL [place] # (Auto) 0.8 (0.0-1.0) 10^3/uL Eos # (Auto) 0.1 (0.0-0.7) 10^3/uL Baso # (Auto) 0.0 (0.0-0.1) 10^3/uL Absolute Nucleated RBC 0.00 x10^3/uL Nucleated RBC % 0.0 /100WBC Sodium 133 L (135-145) mmol/L Potassium 3.6 (3.5-4.5) mmol/L Chloride 101 (101-111) mmol/L Carbon Dioxide 26 (21-32) mmol/L Anion Gap 6.0 (6-13) BUN 16 (6-20) mg/dL Creatinine 1.0 (0.6-1.3) mg/dL Estimated GFR (MDRD) 53 L (>89) Glucose 120 H (74-104) mg/dL Lactic Acid 0.8 (0.5-2.2) mmol/L Calcium 8.7 (8.5-10.3) mg/dL Magnesium 1.9 (1.7-2.3) mg/dL ABX Reporting Has patient been on IV antibiotics over the past 48 hours?: Yes Sepsis Event Note (H) Evaluation Current Stage of Sepsis: Sepsis Possible source of Sepsis: positive Pulmonary Sepsis Criteria Sepsis Criteria: Suspected or Documented, Recorded Heart Rate greater than 90 bpm, Recorded Respiratory Rate greater than 20, Respiratory: Increasing oxygen requirements and WBC count greater than 12,000 or less than 4000 Assessment/Plan Problem List (1) Sepsis: Impression: She has had daily fever. Yesterday she was 38.2. Today the highest she has been is 37.5 so far. Tachypnea comes and goes. Requiring 4 L nasal cannula to maintain O2 sats. White cell count was 17.9 on admission. 14.9 today -Continue IV levofloxacin and fluids. Today is Day #3 of abx. -Cultures have no growth. Gram stain has many white cells, many epithelial cells, many gram-positive cocci, moderate gram-positive cocci and few gram- positive rods as well as yeast. Qualifiers: Sepsis type: sepsis due to unspecified organism Sepsis acute organ dysfunction status: unspecified Qualified Code(s): A41.9 - Sepsis, unspecified organism (2) LLL pneumonia: Impression: The patient presented with a cough with sputum production, dyspnea, fever, tachycardia and tachypneia. CXR showed bibasilar left opacity. -Continue IV levofloxacin and fluids as above. -Blood cultures are no growth to date. Aerobic sputum ordered and culture pending today. Gram stain as above. Qualifiers: Pneumonia type: due to unspecified organism Qualified Code(s): J18.9 - Pneumonia, unspecified organism (3) Abdominal cramping: Impression: Patient has abdominal pain, nausea, vomiting, and diarrhea since 09/13. She has a history of peptic ulcer and GI bleed. Differential diagnoses includes: acute gastroenteritis due to viral infection, C. difficile infection, H. pylori infection, gastritis, IBS. Patient was given GI cocktail, fluids and pain medications. The patient's epigastric pain has improved since admission but it is still present. -Patient is taking Xarelto for chronic atrial fibrillation; held at this time as DOAC may be contributing to gastritis picture. Hemoglobin is low at 8. Iron studies have been ordered. Transfuse for Hb < 7. -Stool culture and O&P have been ordered. Received and pending results from yesterday. -Patient is on IV Protonix. Continued. -GI cocktail has been ordered. -Records have been requested 09/17/24 from [facility] in [place] to see results of patient's EGD. I have asked the REFERRAL AND INFORMATION AIDE to call again.The patient has been advised to stop NSAIDs. -General Surgery about this case. I worry about her having recurrent ulcer disease. They are willing to see her in consult tomorrow and most likely she will have an EGD tomorrow. She says that she is amenable to doing that. (4) COPD (chronic obstructive pulmonary disease): Impression: On admission, patient had dypsnea, fever, abdominal pain, and cough. Chest x-ray on 09/08 revealed scarring/atelectasis due to chronic interstitial lung disease. Patient was given nebulizer treatment on admission and is on 4L oxygen at home. Patient uses ipratroprium bromide inhaler at home. 09/18 the patient's dyspnea and cough had improved. Today she is even better than yesterday except for the phlegm produciton. -Continue nebulizer treatment if indicated. Qualifiers: COPD type: COPD with acute exacerbation Qualified Code(s): J44.1 - Chronic obstructive pulmonary disease with (acute) exacerbation (5) Chronic respiratory failure with hypoxia: Impression: The patient has chronic COPD that is managed with at-home oxygen at 4L. She reported that she's had shortness of breath along with abdominal pain for 10 days. Due to her chronic COPD, the patient's venous blood gases are abnormal; her pCO2 is lower than normal and her pO2 is higher than normal. -Continue to monitor O2 saturation and adjust oxygen therapy as needed. -Continue nebulizer treatment and avoid steroids, as above. (6) Atrial fibrillation: Impression: The patient presented to the ED with sinus tachycardia at 125bpm and dyspnea. It appears she has a history of paroxysmal atrial fibrillation. Currently in NSR. -An EKG in the ED showed sinus tachycardia, normal axis, normal P-R, QRS, and QTc. STEMI was ruled out. She is taking diltiazem, metoprolol succinate. -Continue oral metoprolol succinate, diltiazem. Rivaroxaban currently held due to anemia, gastritis, history of PUD. Will continue discussion on usage of DOAC. -Monitor for acute changes--tachycardia, increased dyspnea, chest pain. Qualifiers: Atrial fibrillation type: longstanding persistent Qualified Code(s): I 48.11 - Longstanding persistent atrial fibrillation (7) Anticoagulated: Impression: as in problem #6. She has not had any anticoagulation while here. I ordered JOSIE donato for DVT prophylaxis. (8) History of GI bleed: Impression: Any acute changes in the patient's symptoms or labs that would indicate possible GI bleed would warrant further evaluation. Her current hemoglobin is 7.8 and hematocrit is 26.0%. The patient was told to stop NSAID use, as above. -Iron studies show low iron at 14. TIBC 273. Percent saturation 5%. Transferrin low at 195. -I have spoken with general surgery for possible upper endoscopy if there is a strong suspicion and evidence of GI bleed--decreasing H&H, abnormal coagulation profile, and symptoms, etc. Currently Hb is stable. Awaiting records of recent EGD/colonoscopy. Surgery will see tomorrow am and she will be on the OR achedule. I am ordering NPO after midnight. (9) Peptic ulcer: Impression: The patient reported that she had a colonoscopy and EGD around 5 years ago and she was diagnosed with peptic ulcer, but does not remember etiology or specific treatments. -Requested medical records from [facility] in [place] on 09/17 and again today. -Patient is on IV Protonix to control acid production and provide relief of epigastric pain. 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 -Consult with general surgery if needed, or if concern for acute ischemia. May require further evaluation with CTA of abdomen if pain progresses.
[2024-09-20 04:36] LABS: BASOPHILS % (AUTO) 0.2 %; EOSINOPHILS # (AUTO) 0.1 10^3/uL (0.0-0.7); EOSINOPHILS % (AUTO) 1.1 %; HCT - HEMATOCRIT 24.9 % (37.0-47.0); HGB - HEMOGLOBIN 7.5 g/dL (12.0-16.0); LYMPHOCYTES # (AUTO) 1.3 10^3/uL (1.5-3.5); LYMPHOCYTES % (AUTO) 13.7 %; MEAN CORPUSCULAR HEMOGLOBIN 26.8 pg (27.0-31.0); MEAN CORPUSCULAR HGB CONC 30.1 g/dL (32.0-36.0); MEAN CORPUSCULAR VOLUME 88.9 fL (81.0-99.0); MONOCYTES # (AUTO) 0.6 10^3/uL (0.0-1.0); MONOCYTES % (AUTO) 6.6 %; NEUTROPHILS # (AUTO) 7.6 10^3/uL (1.5-6.6); NEUTROPHILS % (AUTO) 78.2 %; PLT - PLATELET COUNT 324 10^3/uL (130-450); RED CELL DISTRIBUTION WIDTH 13.9 % (12.0-15.0); WHITE BLOOD COUNT 9.7 x10^3/uL (4.8-10.8)
[2024-09-20 04:54] LABS: CALCIUM 8.7 mg/dL (8.5-10.3); POTASSIUM 3.5 mmol/L (3.5-4.5)
--- NOTE | 2024-09-20 11:29 | ANESTHESIA PROCEDURE NOTE ---
Pre-Anesthesia VS, & Labs Diagnosis Surgical Diagnosis:: GI bleed, abd pain Procedure Procedure: EGD Vitals Vital Signs: Temp Pulse Resp BP Pulse Ox O2 Flow Rate 36.5 C 75 20 118/51 L 4 L 4 09/20/24 08:09 09/20/24 08:09 09/20/24 08:09 09/20/24 08:09 09/20/24 08:09 09/20/24 08:10 NPO NPO: >8 hours Is Patient ?: No Lab Results Current Lab Results: Laboratory Tests 09/20/24 04:21: WBC 9.7, RBC 2.80 L, Hgb 7.5 L, Hct 24.9 L, MCV 88.9, MCH 26.8 L , MCHC 30.1 L, RDW 13.9, Plt Count 324, MPV 10.0, Neut # (Auto) 7.6 H, Lymph # (Auto) 1.3 L, [place] # (Auto) 0.6, Eos # (Auto) 0.1, Baso # (Auto) 0.0, Absolute Nucleated RBC 0.00, Nucleated RBC % 0.0, Sodium 133 L, Potassium 3.5, Chloride 99 L, Carbon Dioxide 27, Anion Gap 7.0, BUN 15, Creatinine 1.0, Estimated GFR (MDRD) 53 L, Glucose 94, Calcium 8.7 09/19/24 05:22: WBC 14.9 H, RBC 2.93 L, Hgb 7.8 L, Hct 26.0 L, MCV 88.7, MCH 26.6 L, MCHC 30.0 L, RDW 14.0, Plt Count 324, MPV 10.1, Neut # (Auto) 12.6 H, L ymph # (Auto) 1.2 L, [place] # (Auto) 0.8, Eos # (Auto) 0.1, Baso # (Auto) 0.0, Absolute Nucleated RBC 0.00, Nucleated RBC % 0.0, Sodium 133 L, Potassium 3.6, Chloride 101, Carbon Dioxide 26, Anion Gap 6.0, BUN 16, Creatinine 1.0, E stimated GFR (MDRD) 53 L, Glucose 120 H, Calcium 8.7, Magnesium 1.9 09/18/24 18:15: Lactic Acid 0.8 09/18/24 06:10: WBC 17.6 H, RBC 2.99 L, Hgb 8.0 L, Hct 26.8 L, MCV 89.6, MCH 26.8 L, MCHC 29.9 L, RDW 14.0, Plt Count 315, MPV 9.8, Neut # (Auto) 15.1 H, Lymph # (Auto) 1.5, [place] # (Auto) 0.8, Eos # (Auto) 0.1, Baso # (Auto) 0.0, Absolute Nucleated RBC 0.00, Nucleated RBC % 0.0, Sodium 135, Potassium 3.9, Chloride 104, Carbon Dioxide 26, Anion Gap 5.0 L, BUN 15, Creatinine 1.1, E stimated GFR (MDRD) 47 L, Glucose 89, Calcium 8.8, Iron 14 L, TIBC 273, % Saturation 5 L, Transferrin 195 L 09/17/24 06:18: VBG pH 7.476 H, VBG pCO2 37.9 L, VBG pO2 49.5 H, VBG HCO3 28.2 H , VBG Total CO2 29.3 H, VBG O2 Saturation 82.0 H, VBG Base Excess 4.4 H, Lactic Acid 1.1 09/17/24 05:20: WBC 17.9 H, RBC 3.00 L, Hgb 8.0 L, Hct 26.6 L, MCV 88.7, MCH 26.7 L, MCHC 30.1 L, RDW 13.8, Plt Count 359, MPV 9.9, Neut # (Auto) 16.0 H, L ymph # (Auto) 1.1 L, [place] # (Auto) 0.5, Eos # (Auto) 0.1, Baso # (Auto) 0.1, Absolute Nucleated RBC 0.00, Nucleated RBC % 0.0, Sodium 137, Potassium 3.9, Chloride 104, Carbon Dioxide 25, Anion Gap 8.0, BUN 15, Creatinine 1.1, E stimated GFR (MDRD) 47 L, Glucose 99, Calcium 8.6, Total Bilirubin 0.3, AST 14, ALT 10, Alkaline Phosphatase 98, Troponin I High Sens 8.6, Total Protein 6.7, Albumin 3.4, Globulin 3.3, Albumin/Globulin Ratio 1.0, Lipase 13, Ethyl Alcohol < 10.0 Lab results reviewed: Yes 09/20/24 04:21 09/20/24 04:21 Meds/Allgy Home Medications Ambulatory Orders Medication Instructions Recorded Confirmed aspirin 81 mg tablet,delayed 81 mg PO QDAY 03/12/24 09/17/24 release (Adult Aspirin Regimen) bisacodyl 10 mg rectal suppository 10 mg MS QDAY PRN constipation 03/12/24 09/17/24 bupropion HCl 150 mg 24 hr tablet, 150 mg PO QAM 03/12/24 09/17/24 extended release (Wellbutrin XL) cholecalciferol (vitamin D3) 50 50 mcg PO QDAY 03/12/24 09/17/24 mcg (2,000 unit) capsule (Vitamin D3) diltiazem HCl 240 mg 240 mg PO QAM 03/12/24 09/17/24 capsule,extended release 24 hr (Cardizem CD) folic acid 1 mg tablet 1 mg PO QDAY 03/12/24 09/17/24 trazodone 50 mg tablet 50 mg PO QPM 03/12/24 09/17/24 venlafaxine 150 mg tablet,extended 150 mg PO QAM 03/12/24 09/17/24 release 24 hr pantoprazole 40 mg tablet,delayed 40 mg PO QDAY 90 days #90 tabs 05/24/24 09/17/24 release pramipexole 0.5 mg tablet 0.5 mg PO QDAY 90 days #90 tabs 05/24/24 09/17/24 lidocaine 5 % topical patch 1 patch topical QDAY 30 days #30 ea 06/10/24 09/17/24 lisinopril 10 mg tablet 10 mg PO QDAY 90 days #90 tabs 07/06/24 09/17/24 metoprolol succinate 50 mg 50 mg PO QDAY 90 days #90 tabs 07/06/24 09/17/24 tablet,extended release 24 hr ondansetron 4 mg disintegrating 4 mg PO QDAY PRN nausea and 07/06/24 09/17/24 tablet vomiting 30 days #30 tabs letrozole 2.5 mg tablet 2.5 mg PO Q24H 90 days #90 tabs 08/05/24 09/17/24 lactobacillus comb no.10 20 20,000 mmu cells PO DAILY #30 caps 09/13/24 09/17/24 billion cell capsule (Probiotic) rivaroxaban 15 mg tablet (Xarelto) 15 mg PO QDAY 90 days #90 tabs 09/16/24 09/17/24 albuterol sulfate 1.25 mg/3 mL 1.25 mg inhalation DAILY PRN 09/17/24 09/17/24 solution for nebulization shortness of breath or wheezing albuterol sulfate 90 mcg/actuation 2 inh inhalation Q4-6H PRN 09/17/24 09/17/24 aerosol inhaler shortness of breath or wheezing famotidine 40 mg tablet 40 mg PO BID 09/17/24 09/17/24 fluticasone fur. 100 mcg-umeclid 1 inh inhalation QAM 09/17/24 09/17/24 62.5 mcg-vilant 25 mcg inhalat.powder (Trelegy Ellipta) ipratropium bromide 21 mcg (0.03 2 spray intranasal BID PRN nasal 09/17/24 09/17/24 %) nasal spray congestion Allergies Allergies Allergy/AdvReac Type Severity Reaction Status Date / Time codeine Allergy Severe Itching Verified 09/17/24 05:25 Latex, Natural Rubber Allergy Severe Hives Verified 09/17/24 05:25 Penicillins Allergy Severe Tachycardia Verified 09/17/24 05:25 PFS Active Problems All Active Problems (Updated 09/17/24 @ 19:31 by Mable Ahn) Sepsis (Acute) Pneumonia (Acute) LLL pneumonia (Acute) Abdominal cramping (Acute) Diarrhea (Acute) Anemia (Acute) Acute dyspnea (Acute) Bronchitis (Acute) Acute exacerbation of chronic obstructive pulmonary disease (Acute) Nausea (Acute) Nasal congestion (Acute) GI bleed (Acute) Medical History Medical History (Updated 09/17/24 @ 19:31 by Mable Ahn) Peptic ulcer Influenza A 05/2024 Chronic respiratory failure with hypoxia on 4 liters [place] Anticoagulated History of GI bleed Anemia RBC's 3.28 (3.32) HGB 9.1 (9.4) HCT 30.7% (31.4%) MCV wnl FE 36 FE sat 13% Sciatica of left side GERD (gastroesophageal reflux disease) Restless legs syndrome (RLS) Atrial fibrillation Hypertension COPD (chronic obstructive pulmonary disease) Chronic pain Anxiety Breast cancer Insomnia Depression Surgical History Surgical History (Updated 09/20/24 @ 11:32 by Armani Swanson CRNA) History of esophagogastroduodenoscopy (EGD) History of total left hip arthroplasty Social History Social History Smoking Status: Former smoker If you are a former smoker, when did you quit? (Date/Year): 1992 Number of Years Smoked: 52 How many cigarettes a day do you smoke? (20 cigarettes=1 Pk): 20 Second hand tobacco smoke exposure: No Patient requests smoking cessation consult: No Living arrangement: At home Living Condition: With family Support Person: Yes Relationship: Physical Activity: Walking Level: Independent Do you feel safe in your home environment?: Yes Suffered physical, verbal, emotional, or financial abuse?: No Are you sexually active?: No POLST Patient has POLST: No Anesthesia Exam (Expanded) Exam General: Alert, Oriented x3 and Cooperative Dental: Dentures full Upper and Dentures full Lower Mouth Openin Fingerbreadth Neck Mobility: Normal Mallampati classification: III Thyromental Distance: 4-6 cm Respiratory: No respiratory distress, Decreased breath sounds, Wheezing (L lower lobe decreasxed sounds, wheezing, LLL pneumonia of cxr) and Other (4L O2 at home, sats normally 90-95) Cardiovascular: Regular rate (states hx Afib) Neurological: Normal speech Mental/Cognitive Status: Alert/Oriented X3 and Normal for patient Cognitive Status: Within normal limits Exam Exam Vital Signs: Vital Signs x48h Temp Pulse Resp BP BP Pulse Ox O2 Flow Rate 09/20/24 08:10 4 09/20/24 08:09 36.5 C 75 20 118/51 L 4 L 09/20/24 04:30 37 C 70 16 120/56 L 98 4 Plan Problem List (1) Sepsis: Plan: Patient came into the ED today with dyspnea, fever, abdominal pain, and cough. Her WBC count is 17.9 and she has tachypneia, tachycardia. Source is pneumonia. -I've chosen IV levofloxacin since she is allergic to PCN and has chronic COPD -I will give 1 liter of maintenance fluids -Blood cultures pending and will be reviewed once resulted. I will adjust abx once they are back. Qualifiers: Sepsis acute organ dysfunction status: unspecified Sepsis type: sepsis due to unspecified organism Qualified Code(s): A41.9 - Sepsis, unspecified organism (2) LLL pneumonia: Plan: The patient presented with a cough with sputum production, dyspnea, fever, tachycardia and tachypneia. CXR showed bibasilar left opacity. -Continue IV levofloxacin and fluids as above -Blood cultures pending -Patient is producing sputum and I will order C&S. Qualifiers: Pneumonia type: due to unspecified organism Qualified Code(s): J18.9 - Pneumonia, unspecified organism (3) Abdominal cramping: Plan: Patient has abdominal pain, nausea, vomiting, and diarrhea since 09/13. She has a history of peptic ulcer and GI bleed. Differential diagnoses includes: acute gastroenteritis due to viral infection, C. difficile infection, H. pylori infection, IBS. Patient was given GI cocktail, fluids and pain medications. She still has epigastric pain that is severe and it is helped by GI cocktail. So I am also considering gastritis. -Patient is taking Xarelto for chronic atrial fibrillation; held at this time. -I will order stool culture -I will order O&P -I will order IV protonix -I have ordered GI cocktail -I will get records from [facility] to see what that EGD showed. I have also told her to stop ANY NSAID. She cannot take them. (4) COPD (chronic obstructive pulmonary disease): Plan: Patient has dypsnea, fever, abdominal pain, and cough. CXR on 09/08 revealed scarring/atelectasis due to chronic interstitial lung disease. Patient was given nebulizer treatment on admission and is on 4L oxygen at home. Patient uses ipratroprium bromide inhaler at home. -Continue nebulizer treatment as indicated. -Avoid ordering steroids due to epigastric pain and worsening of gastritis. Qualifiers: COPD type: COPD with acute exacerbation Qualified Code(s): J44.1 - Chronic obstructive pulmonary disease with (acute) exacerbation (5) Chronic respiratory failure with hypoxia: Plan: The patient has chronic COPD that is managed with at-home oxygen at 4L. She reported that she's had shortness of breath along with abdominal pain for 10 days. Due to her chronic COPD, the patient's venous blood gases are abnormal; her pCO2 is lower than normal and her pO2 is higher than normal. -Continue to monitor O2 saturation and adjust oxygen therapy as needed. -Continue nebulizer treatment and avoid steroids, as above. (6) Atrial fibrillation: Plan: The patient presented to the ED with sinus tachycardia at 125bpm and dyspnea. It appears she has a history of paroxysmal atrial fibrillation. Currently in NSR. An EKG in the ED showed sinus tachycardia, normal axis, normal P-R, QRS, and QTc. STEMI was ruled out. She is taking diltiazem, metoprolol succinate. -Continue oral metoprolol succinate, diltiazem. Rrivaroxaban currently held due to anemia, gastritis, history of PUD. -Monitor for acute changes--tachycardia, increased dyspnea, chest pain Qualifiers: Atrial fibrillation type: longstanding persistent Qualified Code(s): I 48.11 - Longstanding persistent atrial fibrillation (7) Anticoagulated: Plan: Patient has been on rivaroxaban at home and was given IV enoxaparin sodium on admission. -Continue anticoagulation -Order coagulation profile and monitor. -Due to her history of GI bleed, any acute changes in symptoms such as bloody stools, hematemesis, and changes in labs such as decreased hemoglobin or hematocrit, would require adjustment in anticoagulation therapy. (8) History of GI bleed: Plan: Any acute changes in the patient's symptoms or labs that would indicate possible GI bleed would warrant further evaluation. Her current hemoglobin is 8.0 and hematocrit is 26.8%. The patient was told to stop NSAID use, as above. -Order transfusion if patient's hemoglobin drops below 8.0. -Order abdominal CT if needed -Consult with general surgery for possible upper endoscopy if there is a strong suspicion and evidence of GI bleed--decreasing H&H, abnormal coagulation profile, and symptoms. (9) Peptic ulcer: Plan: The patient reported that she had a colonoscopy and EGD around 5 years ago and she was diagnosed with peptic ulcer, but does not remember etiology or specific treatments. -Requested medical records from [facility] -Patient is on IV Protonix to control acid production and provide relief of epigastric pain. 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 The patient has been on anticoagulation therapy to prevent thrombosis. -As above, patient is on IV enoxaparin sodium. -Continue monitoring coagulation profile and clinical progression/signs -Consult with general surgery if needed Plan Anesthesia Type: Total IV Consent for Procedure(s) Verified and Reviewed: Yes Code Status: Attempt Resuscitation ASA Classification ASA classification: 3-Severe systemic disease Is this case an emergency?: No
[2024-09-20] MEDS ORDERED: PROPOFOL 200 MG/20 ML VIAL IVP ONE (11:58)
[2024-09-20] MEDS ORDERED: LIDOCAINE-MPF 2% 5 ML VIAL ONE (11:58)
--- NOTE | 2024-09-20 12:13 | MISCELLANEOUS PROVIDER NOTE ---
Miscellaneous Provider Note - Note: Called for new IV placement after multiple failed attempts/infiltration. New 20ga placed at R AC with US attempt x2. Pt tolerated the procedure without complaint. IV antibiotics restarted at site without complaint.
--- NOTE | 2024-09-20 12:31 | CONSULTATION NOTE ---
Referring Provider Name of Referring Provider:: Dr. Loraine Yung Consult Date: 09/20/24 Chief Complaint Chief Complaint Chief Complaint: Periumbilical abdominal pain in a patient with a history of an ulcer History of Present Illness Admitted From Admitted From:: ED History Obtained From Records Reviewed: Yes History obtained from: Patient, chart, Dr. Yung Exam Limitations: None History of Present Illness HPI Comment/Other: Patient is an exceedingly pleasant 83-year-old female who is evaluated in room 2309 of [facility]'s MedSur unit. The patient states that she has had symptoms for approximately 2 weeks that started with diarrhea. Patient states that when she has diarrhea she cured this by giving herself an enema and in this case the abdominal pain and the diarrhea stopped following the enema. The diarrhea transiently returned and then resolved but the abdominal pain returned and is currently located slightly to the right of midline. She denies nausea or vomiting. She states that she has been taking a large amount of Pepto-Bismol and as a result her stools have turned dark. I explained this is normal. She denies any weight loss. She states that motion or palpation causes the pain to worsen. She showed me where the pain was which is periumbilical but to the right of the umbilicus and proceeding slightly upwards and slightly down from the site. She continues to have bowel movements. She states that she cannot tolerate iron because it "destroys her body." PFSH Active Problems All Active Problems (Updated 09/17/24 @ 19:31 by Mable Ahn) Sepsis (Acute) Pneumonia (Acute) LLL pneumonia (Acute) Abdominal cramping (Acute) Diarrhea (Acute) Anemia (Acute) Acute dyspnea (Acute) Bronchitis (Acute) Acute exacerbation of chronic obstructive pulmonary disease (Acute) Nausea (Acute) Nasal congestion (Acute) GI bleed (Acute) Medical History Medical History (Updated 09/17/24 @ 19:31 by Mable Ahn) Peptic ulcer Influenza A 05/2024 Chronic respiratory failure with hypoxia on 4 liters [place] Anticoagulated History of GI bleed Anemia RBC's 3.28 (3.32) HGB 9.1 (9.4) HCT 30.7% (31.4%) MCV wnl FE 36 FE sat 13% Sciatica of left side GERD (gastroesophageal reflux disease) Restless legs syndrome (RLS) Atrial fibrillation Hypertension COPD (chronic obstructive pulmonary disease) Chronic pain Anxiety Breast cancer Insomnia Depression Surgical History Surgical History (Updated 09/20/24 @ 11:32 by Armani Swanson CRNA) History of esophagogastroduodenoscopy (EGD) History of total left hip arthroplasty Social History Social History Smoking Status: Former smoker If you are a former smoker, when did you quit? (Date/Year): 1992 Number of Years Smoked: 52 How many cigarettes a day do you smoke? (20 cigarettes=1 Pk): 20 Second hand tobacco smoke exposure: No Patient requests smoking cessation consult: No Living arrangement: At home Living Condition: With family Support Person: Yes Relationship: Physical Activity: Walking Level: Independent Do you feel safe in your home environment?: Yes Suffered physical, verbal, emotional, or financial abuse?: No Are you sexually active?: No POLST Patient has POLST: No Meds/Allgy Home Medications Ambulatory Orders Medication Instructions Recorded Confirmed aspirin 81 mg tablet,delayed 81 mg PO QDAY 03/12/24 09/17/24 release (Adult Aspirin Regimen) bisacodyl 10 mg rectal suppository 10 mg RI QDAY PRN constipation 03/12/24 09/17/24 bupropion HCl 150 mg 24 hr tablet, 150 mg PO QAM 03/12/24 09/17/24 extended release (Wellbutrin XL) cholecalciferol (vitamin D3) 50 50 mcg PO QDAY 03/12/24 09/17/24 mcg (2,000 unit) capsule (Vitamin D3) diltiazem HCl 240 mg 240 mg PO QAM 03/12/24 09/17/24 capsule,extended release 24 hr (Cardizem CD) folic acid 1 mg tablet 1 mg PO QDAY 03/12/24 09/17/24 trazodone 50 mg tablet 50 mg PO QPM 03/12/24 09/17/24 venlafaxine 150 mg tablet,extended 150 mg PO QAM 03/12/24 09/17/24 release 24 hr pantoprazole 40 mg tablet,delayed 40 mg PO QDAY 90 days #90 tabs 05/24/24 09/17/24 release pramipexole 0.5 mg tablet 0.5 mg PO QDAY 90 days #90 tabs 05/24/24 09/17/24 lidocaine 5 % topical patch 1 patch topical QDAY 30 days #30 ea 06/10/24 09/17/24 lisinopril 10 mg tablet 10 mg PO QDAY 90 days #90 tabs 07/06/24 09/17/24 metoprolol succinate 50 mg 50 mg PO QDAY 90 days #90 tabs 07/06/24 09/17/24 tablet,extended release 24 hr ondansetron 4 mg disintegrating 4 mg PO QDAY PRN nausea and 07/06/24 09/17/24 tablet vomiting 30 days #30 tabs letrozole 2.5 mg tablet 2.5 mg PO Q24H 90 days #90 tabs 08/05/24 09/17/24 lactobacillus comb no.10 20 20,000 mmu cells PO DAILY #30 caps 09/13/24 09/17/24 billion cell capsule (Probiotic) rivaroxaban 15 mg tablet (Xarelto) 15 mg PO QDAY 90 days #90 tabs 09/16/24 09/17/24 albuterol sulfate 1.25 mg/3 mL 1.25 mg inhalation DAILY PRN 09/17/24 09/17/24 solution for nebulization shortness of breath or wheezing albuterol sulfate 90 mcg/actuation 2 inh inhalation Q4-6H PRN 09/17/24 09/17/24 aerosol inhaler shortness of breath or wheezing famotidine 40 mg tablet 40 mg PO BID 09/17/24 09/17/24 fluticasone fur. 100 mcg-umeclid 1 inh inhalation QAM 09/17/24 09/17/24 62.5 mcg-vilant 25 mcg inhalat.powder (Trelegy Ellipta) ipratropium bromide 21 mcg (0.03 2 spray intranasal BID PRN nasal 09/17/24 09/17/24 %) nasal spray congestion Allergies Allergies Allergy/AdvReac Type Severity Reaction Status Date / Time codeine Allergy Severe Itching Verified 09/17/24 05:25 Latex, Natural Rubber Allergy Severe Hives Verified 09/17/24 05:25 Penicillins Allergy Severe Tachycardia Verified 09/17/24 05:25 Results Lab Results Lab results reviewed: Yes 09/20/24 04:21 09/20/24 04:21 Other Lab Results: Lab Results x24hrs 05/05/25 Range/Units 04:21 WBC 9.7 (4.8-10.8) x10^3/uL RBC 2.80 L (4.20-5.40) 10^6/uL Hgb 7.5 L (12.0-16.0) g/dL Hct 24.9 L (37.0-47.0) % MCV 88.9 (81.0-99.0) fL MCH 26.8 L (27.0-31.0) pg MCHC 30.1 L (32.0-36.0) g/dL RDW 13.9 (12.0-15.0) % Plt Count 324 (130-450) 10^3/uL MPV 10.0 (7.9-10.8) fL Neut # (Auto) 7.6 H (1.5-6.6) 10^3/uL Lymph # (Auto) 1.3 L (1.5-3.5) 10^3/uL [place] # (Auto) 0.6 (0.0-1.0) 10^3/uL Eos # (Auto) 0.1 (0.0-0.7) 10^3/uL Baso # (Auto) 0.0 (0.0-0.1) 10^3/uL Absolute Nucleated RBC 0.00 x10^3/uL Nucleated RBC % 0.0 /100WBC Sodium 133 L (135-145) mmol/L Potassium 3.5 (3.5-4.5) mmol/L Chloride 99 L (101-111) mmol/L Carbon Dioxide 27 (21-32) mmol/L Anion Gap 7.0 (6-13) BUN 15 (6-20) mg/dL Creatinine 1.0 (0.6-1.3) mg/dL Estimated GFR (MDRD) 53 L (>89) Glucose 94 (74-104) mg/dL Calcium 8.7 (8.5-10.3) mg/dL Diagnostic Imaging Results Diagnostic Imaging Results: positive Final report reviewed (Interestingly enough the CT scan performed February 2024 discussed a calcified SMA as well as a celiac and definitely mention a concern for mesenteric ischemia. The repeat CT scan just done does not mention these. It also does not mention the hiatal hernia that was noted in 2023.) Review of Systems Status of ROS: 10 or more systems reviewed and unremarkable except as noted in history and below Exam Exam Vital Signs: Vital Signs x48h Temp Pulse Resp BP BP Pulse Ox O2 Flow Rate 09/20/24 08:10 4 09/20/24 08:09 36.5 C 75 20 118/51 L 4 L 09/20/24 04:30 37 C 70 16 120/56 L 98 4 General: 83-year old thin female, appears stated age, well developed, very talkative, evaluated in the bed in room 2309 of [facility]'s Med[facility] unit HEENT: Normocephalic, atraumatic, extraocular movement intact, mucous membranes pink and moist, sclera anicteric and not injected, dentures, Mallampati 2 Neck: Supple without pain on palpation, mass or bruit Cardiac: Regular rate and rhythm without rub, gallop, or murmur Chest: Clear to auscultation bilaterally Abdomen: Soft, normoactive bowel sounds, no hepatomegaly, no splenomegaly, mildly tender on the right-hand side periumbilically without peritoneal findings Genitourinary: Deferred Rectal: Deferred Extremities: No gross neurovascular problem, no clubbing, cyanosis or edema Gait: Not evaluated Psychiatric: Alert and oriented to person place and time, asks and answers questions appropriately, mood and affect appropriate Conclusion/Plan Problem List (1) Sepsis: Qualifiers: Sepsis type: sepsis due to unspecified organism Sepsis acute organ dysfunction status: unspecified Qualified Code(s): A41.9 - Sepsis, unspecified organism (2) LLL pneumonia: Qualifiers: Pneumonia type: due to unspecified organism Qualified Code(s): J18.9 - Pneumonia, unspecified organism (3) Abdominal cramping: Plan: Indications, procedure, alternatives (such as barium studies and even no procedure at all and risks including but not limited to perforation requiring operative repair, bleeding with its risks, and were fully explained to her. I explained that MAC anesthesia is administered by our anesthetists and that they would be talking to her in greater detail about this. I explained that her posterior oropharynx would also be anesthetized for the procedure. Review of his history does not reveal any significant systemic disease that would contraindicate use of conscious sedation or MAC anesthesia. All questions were fully answered. Verbal and written consent was obtained. The patient in preparation for her esophagogastroduodenoscopy will be n.p.o. I have asked her to let us know if there is any way we can make her stay at [facility] more comfortable and she stated that she would. I would strongly recommend that a discussion is held comparing the CT scan of February 2024 and now September 2024 and a determination is made as to whether this is contributing to her symptoms. 45 minutes of [id number] time spent with the patient the majority of which was spent in discussion, coordination of their care and completion of the requisite paperwork CPT 77589 (4) COPD (chronic obstructive pulmonary disease): Qualifiers: COPD type: COPD with acute exacerbation Qualified Code(s): J44.1 - Chronic obstructive pulmonary disease with (acute) exacerbation (5) Chronic respiratory failure with hypoxia: (6) Atrial fibrillation: Qualifiers: Atrial fibrillation type: longstanding persistent Qualified Code(s): I 48.11 - Longstanding persistent atrial fibrillation (7) Anticoagulated: (8) History of GI bleed: (9) Peptic ulcer: (10) Chronic mesenteric ischemia: Lab Results Lab results reviewed: Yes 09/20/24 04:21 09/20/24 04:21 Diagnostic Imaging Results Diagnostic Imaging Results: positive Final report reviewed (Interestingly enough the CT scan performed February 2024 discussed a calcified SMA as well as a celiac and definitely mention a concern for mesenteric ischemia. The repeat CT scan just done does not mention these. It also does not mention the hiatal hernia that was noted in 2023.)
--- NOTE | 2024-09-20 13:41 | ANESTHESIA POST OP EVALUATION ---
Anesthesia Post Eval Post Anesthesia Eval Vitals: Last Vital Signs Temp 36.7 C 09/20/24 13:35 Pulse 90 09/20/24 13:35 Resp 22 09/20/24 13:35 BP 132/52 H 09/20/24 13:35 Pulse Ox 100 09/20/24 13:35 O2 Flow Rate 4 09/20/24 08:10 CV Function Including HR & BP: Stable Pain Control: Satisfactory Nausea & Vomiting: Negative Mental Status: Baseline Respiratory Status: Airway Patent Hydration Status: Satisfactory Anesthesia Complications: None
[2024-09-20] MEDS ORDERED: ePHEDrine 50 MG/ML VIAL IVP PRN (14:05)
[2024-09-20] MEDS ORDERED: fentaNYL 100 MCG/2 ML VIAL IVP PRN (14:05)
[2024-09-20] MEDS ORDERED: METOCLOPRAMIDE 10 MG/2 ML VIAL IVP PRN (14:05)
[2024-09-20] MEDS ORDERED: NALOXONE 0.4 MG/ML VIAL IVP PRN (14:05)
[2024-09-20] MEDS: guaiFENesin 600 MG TABLET PO SCH (14:05)
[2024-09-20] MEDS ORDERED: HYDROmorphone 0.5 MG/0.5 ML SYRINGE IVP PRN (14:05)
[2024-09-20] MEDS ORDERED: ONDANSETRON 4 MG/2 ML VIAL IVP PRN (14:05)
[2024-09-20] MEDS ORDERED: ATROPINE ABBOJECT 1 MG/10 ML SYRINGE IVP PRN (14:05)
[2024-09-20] MEDS ORDERED: MORPHINE 2 MG/ML CARPUJECT IVP PRN (14:05)
[2024-09-20] MEDS ORDERED: LACTATED RINGERS 1,000 ML IV SCH (15:00)
[2024-09-20 15:32] VITALS: BP 117/45; TEMP 99.3; O2SAT 95
--- NOTE | 2024-09-20 16:13 | Discharge Summary ---
"Discharge Summary Admit Date: 09/17/24 Discharge Date: 09/20/24 Discharging Provider: Loraine Yung MD Primary Care Provider: LEXA Medina @ [facility] Code Status: Do Not Attempt Resuscitation Discharge Facility Name: [facility] DIAGNOSES Discharge Diagnoses with Status of Each Condition: 1. Sepsis present on admission and resolved 2. Left lower lobe pneumonia 3. Chronic respiratory failure with hypoxia 4. COPD with exacerbation 5. Atrial fibrillation, longstanding persistent 6. Anticoagulated 7. History of GI bleed and peptic ulcer disease 5 years ago 8. Acute on chronic mesenteric ischemia. 9. Abdominal pain 10. Iron deficiency anemia HPI History of Present Illness: Macrina is an 83-year-old female with a history of COPD, CHF, chronic mesenteric ischemia and peptic ulcer being admitted with cough, dyspnea, nausea, fever, abdominal pain and tachycardia. She reported that her symptoms began 3 weeks ago, and she's had pneumonia before and felt like it was the same. This is her third visit to the ED in 9 days. She walked into the ED on 09/08 with dyspnea, cough and sputum. A CXR revealed no focal infiltrate and scarring/atelectasis from chronic COPD. She was diagnosed with acute on chronic COPD, bronchitis and acute dyspnea; she was prescribed levofloxacin, hydrocodone-acetaminophen, and dexamethasone. She returned via ambulance to the ED on 09/13 with abdominal pain and diarrhea, possibly due to recent levofloxacin prescription. She was diagnosed with anemia, diarrhea, and she was then discharged with a probiotic and oxycodone. On admission today, her blood pressure and respiratory rate are elevated and her WBC count is 17.9, meeting sepsis criteria. Chest x-ray showed bibasilar left opacity. She was started on IV levofloxacin, fluids. Her abdominal pain has worsened and she requested more pain medication. The diarrhea is without blood. No one else is sick. Is happening 2 or 3 times a day. Her abdominal pain is present 24/7 regardless of food intake or diarrhea. She is having burning pain in her epigastric area. She moved to [facility] 7 months ago from [place] after living there for over 20 years and her mhidlqeatfiln-mo-xac cares for her. Family history: She has two daughters--one in [place] and one in [place]. Her father and two brothers of [place]/heart disease. She was born and raised in [place], [place]. Her years ago and they were for over 50 years. Surgical history: Radical mastectomy of left breast on letrozole; two bladder surgeries; multiple foot surgeries; palate surgery; bilateral hip replacements. She reported a history of cervical and uterine cancer. CONSULTS | PROCEDURES Consultations: General Surgery for EGD Procedures: 1. EGD with old scarring from previous peptic ulcer disease history. Unknown duration. Linear erosions as you go into the duodenum. Patchy white blanching areas compatible with early ischemia. 2. Chest x-ray with bibasilar left opacity concerning for infection. Not completely visualized and CT of chest recommended. 3. CT of chest shows biapical scarring, moderate centrilobular emphysema, patchy left lung consolidation, mid lung zone to lower left zone predominant. Airways clear. Heart is enlarged. No pericardial effusion. No mediastinal adenopathy. 4. CT of abdomen without acute abnormality. 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 This CT was not a contrast. But had calcification. 5. Respiratory culture in progress. There were gram-positive cocci, gram- positive bacilli, many white cells, less than 10 squamous cells. 6. Blood cultures negative after 2 days. HOSPITAL COURSE Hospital Course: On admission her fever was 38.1. The next day she was 38. 2. By September 19 she had defervesced to 37.1. She has been afebrile since then. White cell count has normalized from 17.9->9.7 today. Blood culture has been negative. Sputum culture is pending at the time of discharge. She is back to her baseline 4 L of nasal cannula to maintain adequate O2 sats. Today is her fourth day of antibiotics and I planned on giving her 5.This patient is in our system as a recent addition from February 2024. Prior to that we do not have records. Hemoglobin in February 2024 was 9.4. September 13 she was 8.9. On admission she was 8.0 and today she is 7.5 hemoglobin.Iron studies from September 18 have an iron of 14, TIBC 273, percent saturation 5, transferrin 195. Her abdominal pain was continuing in spite of my empiric treatment of probable peptic ulcer disease. I have given her IV proton pump inhibitors, GI cocktails, with her opioids. And her abdominal pain waxed and waned without any rhyme or reason. Diarrhea was not present. Thinking I was treating abdominal pain from peptic ulcer disease (most of her pain is epigastric) in a patient on a DOAC for afib and taking prn ASA, I had general surgery see her for an EGD today. EGD shows linear erosions and patchy white blanching areas of her stomach wall that are more compatible with ischemia than ulcer disease. General surgery feels that this is an urgent problem, not necessarily an emergent problem, that needs to be addressed. We are a critical access hospital. We do not have vascular intervention. We do not have vascular surgery. I asked the patient if she wanted me to proceed with transfer to a higher level of care to see if IR or vascular surgery could see her. We have had advance care planning conversation. She is a DNI and DNR. But she still wants treatment. She did asked to be transferred to [facility] since her previous care was at [facility] in [place]. I was able to speak to Dr. Mcfarland, vascular surgery who feels that she is a candidate for at least a consultation and possible intervention. He has asked that I speak to medicine for admission. I spoke to Dr. Meredith Roberts. Discussed the case. She is excepted the patient in transfer. The patient is currently in stable condition. Blood pressure is 117/45 after her endoscopy. Pulse is 89. Respirations 16. Temp 37.4. O2 sat 95% on 4 L. She is awake, alert and oriented. Asking for a little bit of food so I am giving her clear liquids. Lungs have quiet lung sounds and prolonged exhalation phase but no wheezing. No respiratory distress. She has an irregular rate and rhythm with a systolic ejection murmur. Abdomen has hypoactive bowel sounds, tender with palpation in the epigastrium and mid abdomen. Tenderness is mild. No rebound or guarding. Extremities are within and she does not have any clubbing or cyanosis or edema and spite of her chronic hypoxemia requiring oxygen. She has no focal deficits. She is a loquacious conversationalist. Greater than 30 minutes was spent coordinating discharge This document was made in part using voice recognition software. While efforts are made to proofread this document, sound alike and grammatical errors may occur. ALLERGIES Allergies Allergy/AdvReac Type Severity Reaction Status Date / Time codeine Allergy Severe Itching Verified 09/17/24 05:25 Latex, Natural Rubber Allergy Severe Hives Verified 09/17/24 05:25 Penicillins Allergy Severe Tachycardia Verified 09/17/24 05:25 MEDICATIONS Ambulatory Orders Medication Instructions Recorded Confirmed aspirin 81 mg tablet,delayed 81 mg PO QDAY 03/12/24 09/17/24 release (Adult Aspirin Regimen) bisacodyl 10 mg rectal suppository 10 mg OH QDAY PRN constipation 03/12/24 09/17/24 bupropion HCl 150 mg 24 hr tablet, 150 mg PO QAM 03/12/24 09/17/24 extended release (Wellbutrin XL) cholecalciferol (vitamin D3) 50 50 mcg PO QDAY 03/12/24 09/17/24 mcg (2,000 unit) capsule (Vitamin D3) diltiazem HCl 240 mg 240 mg PO QAM 03/12/24 09/17/24 capsule,extended release 24 hr (Cardizem CD) folic acid 1 mg tablet 1 mg PO QDAY 03/12/24 09/17/24 trazodone 50 mg tablet 50 mg PO QPM 03/12/24 09/17/24 venlafaxine 150 mg tablet,extended 150 mg PO QAM 03/12/24 09/17/24 release 24 hr pantoprazole 40 mg tablet,delayed 40 mg PO QDAY 90 days #90 tabs 05/24/24 09/17/24 release pramipexole 0.5 mg tablet 0.5 mg PO QDAY 90 days #90 tabs 05/24/24 09/17/24 lidocaine 5 % topical patch 1 patch topical QDAY 30 days #30 ea 06/10/24 09/17/24 lisinopril 10 mg tablet 10 mg PO QDAY 90 days #90 tabs 07/06/24 09/17/24 metoprolol succinate 50 mg 50 mg PO QDAY 90 days #90 tabs 07/06/24 09/17/24 tablet,extended release 24 hr ondansetron 4 mg disintegrating 4 mg PO QDAY PRN nausea and 07/06/24 09/17/24 tablet vomiting 30 days #30 tabs letrozole 2.5 mg tablet 2.5 mg PO Q24H 90 days #90 tabs 08/05/24 09/17/24 lactobacillus comb no.10 20 20,000 mmu cells PO DAILY #30 caps 09/13/24 09/17/24 billion cell capsule (Probiotic) rivaroxaban 15 mg tablet (Xarelto) 15 mg PO QDAY 90 days #90 tabs 09/16/24 09/17/24 albuterol sulfate 1.25 mg/3 mL 1.25 mg inhalation DAILY PRN 09/17/24 09/17/24 solution for nebulization shortness of breath or wheezing albuterol sulfate 90 mcg/actuation 2 inh inhalation Q4-6H PRN 09/17/24 09/17/24 aerosol inhaler shortness of breath or wheezing famotidine 40 mg tablet 40 mg PO BID 09/17/24 09/17/24 fluticasone fur. 100 mcg-umeclid 1 inh inhalation QAM 09/17/24 09/17/24 62.5 mcg-vilant 25 mcg inhalat.powder (Trelegy Ellipta) ipratropium bromide 21 mcg (0.03 2 spray intranasal BID PRN nasal 09/17/24 09/17/24 %) nasal spray congestion PHYSICAL EXAM AT DISCHARGE Vital Signs: Vital Signs x48h Temp Pulse Pulse Resp BP BP BP 09/20/24 15:31 37.4 C 89 16 117/45 L 09/20/24 14:00 37.2 C 87 18 132/58 H 09/20/24 13:35 36.7 C 90 22 132/52 H 09/20/24 13:30 87 22 134/53 H 09/20/24 13:22 36.8 C 89 22 130/55 L 09/20/24 08:10 09/20/24 08:09 36.5 C 75 20 118/51 L Pulse Ox O2 Flow Rate 09/20/24 15:31 95 4 09/20/24 14:00 99 4 09/20/24 13:35 100 09/20/24 13:30 100 09/20/24 13:22 100 09/20/24 08:10 4 09/20/24 08:09 4 L LABS 09/20/24 04:21 09/20/24 04:21 SEPSIS Current Stage of Sepsis: Sepsis Possible source of Sepsis: Pulmonary Sepsis Criteria: Suspected or Documented, Recorded Heart Rate greater than 90 bpm, Recorded Respiratory Rate greater than 20, Respiratory: Increasing oxygen requirements and WBC count greater than 12,000 or less than 4000 Discharge Plan Discharge Patient Disposition: 02 Transfer Acute Care Hosp Condition: Serious Medically Cleared Date:: 09/20/24 Prescriptions: No Action Probiotic 20 billion cell capsule 20,000 mmu cells PO DAILY Qty: 30 0RF Rx Instructions: administer with a meal albuterol sulfate 90 mcg/actuation HFA aerosol inhaler 2 inh INHALATION Q4-6H PRN (Reason: shortness of breath or wheezing) Patient Comments: TAKE 2 PUFFS EVERY 4-6 HOURS NEEDED FOR WHEEZING. famotidine 40 mg tablet 40 mg PO BID Patient Comments: TAKE 1 TABLET BY MOUTH TWICE A DAY albuterol sulfate 1.25 mg/3 mL solution for nebulization 1.25 mg inhalation DAILY PRN (Reason: shortness of breath or wheezing) ipratropium bromide 21 mcg (0.03 %) spray,non-aerosol 2 spray intranasal BID PRN (Reason: nasal congestion) Trelegy Ellipta 100-62.5-25 mcg blister with device 1 inh inhalation QAM pantoprazole 40 mg tablet,delayed release (DR/EC) 40 mg PO QDAY 90 Days Qty: 90 3RF pramipexole 0.5 mg tablet 0.5 mg PO QDAY 90 Days Qty: 90 1RF lidocaine 5 % adhesive patch,medicated 1 patch topical QDAY 30 Days Qty: 30 2RF Rx Instructions: leave on most painful area for up to 12 hrs letrozole 2.5 mg tablet 2.5 mg PO Q24H 90 Days Qty: 90 0RF Xarelto 15 mg tablet 15 mg PO QDAY 90 Days Qty: 90 1RF Rx Instructions: must administer with evening meal aspirin [Adult Aspirin Regimen] 81 mg tablet,delayed release (DR/EC) 81 mg PO QDAY bisacodyl 10 mg suppository 10 mg [place] QDAY PRN (Reason: constipation) bupropion HCl [Wellbutrin XL] 150 mg tablet extended release 24 hr 150 mg PO QAM cholecalciferol (vitamin D3) [Vitamin D3] 50 mcg (2,000 unit) capsule 50 mcg PO QDAY diltiazem HCl [Cardizem CD] 240 mg capsule,extended release 24hr 240 mg PO QAM folic acid 1 mg tablet 1 mg PO QDAY trazodone 50 mg tablet 50 mg PO QPM venlafaxine 150 mg tablet extended release 24hr 150 mg PO QAM metoprolol succinate 50 mg tablet extended release 24 hr 50 mg PO QDAY 90 Days Qty: 90 1RF lisinopril 10 mg tablet 10 mg PO QDAY 90 Days Qty: 90 1RF ondansetron 4 mg tablet,disintegrating 4 mg PO QDAY PRN (Reason: nausea and vomiting) 30 Days Qty: 30 3RF Print Language: Bulgarian"
== END 2024-09-20 18:05 | disposition short-term general hospital (02) | DRG 871 ==
LOC: ED 05:07 → MS3 09:03
PROVIDERS: ADMIT Specialist; ATTEND Specialist
DX: J44.0 Chronic obstructive pulmonary disease with (acute) lower respiratory infection; K25.9 Gastric ulcer, unspecified as acute or chronic, without hemorrhage or perforation; Z90.12 Acquired absence of left breast and nipple; D64.9 Anemia, unspecified; R19.7 Diarrhea, unspecified; Z87.891 Personal history of nicotine dependence; Z85.3 Personal history of malignant neoplasm of breast; I50.9 Heart failure, unspecified; I48.91 Unspecified atrial fibrillation; J44.1 Chronic obstructive pulmonary disease with (acute) exacerbation; I48.11 Longstanding persistent atrial fibrillation; R10.9 Unspecified abdominal pain; J96.11 Chronic respiratory failure with hypoxia; K29.50 Unspecified chronic gastritis without bleeding; Z88.0 Allergy status to penicillin; D50.0 Iron deficiency anemia secondary to blood loss (chronic); A41.9 Sepsis, unspecified organism; Z87.11 Personal history of peptic ulcer disease; R01.1 Cardiac murmur, unspecified; K55.1 Chronic vascular disorders of intestine; Z79.01 Long term (current) use of anticoagulants; Z66 Do not resuscitate; J18.9 Pneumonia, unspecified organism; Z99.81 Dependence on supplemental oxygen; K55.059 Acute (reversible) ischemia of intestine, part and extent unspecified; K44.9 Diaphragmatic hernia without obstruction or gangrene